=== PATIENT | male | born 1960 | race Caucasian/White ===

== ENCOUNTER → 2020-05-20 | Outpatient (CLI) | payer OTHER ==
[2020-05-20 18:35] LABS: BASOPHILS ABSOLUTE AUTO 0.04 K/mm3 (0.00-0.23); BASOPHILS PERCENT AUTO 1 % (0-2); EOSINOPHILS ABSOLUTE AUTO 0.24 K/mm3 (0.00-0.68); EOSINOPHILS PERCENT AUTO 3 % (0-6); Hematocrit 42.9 % (37.0-53.0); Hemoglobin 13.8 g/dL (13.5-17.5); IMMATURE GRAN ABSOLUTE AUTO 0.02 K/mm3 (0.00-0.10); IMMATURE GRAN PERCENT AUTO 0 % (0-1); LYMPHOCYTES ABSOLUTE AUTO 1.45 K/mm3 (0.84-5.20); LYMPHOCYTES PERCENT AUTO 20 % (21-46); MONOCYTES ABSOLUTE AUTO 0.82 K/mm3 (0.16-1.47); MONOCYTES PERCENT AUTO 11 % (4-13); Mean Corpuscular HGB 29.4 pg (26.0-34.0); Mean Corpuscular HGB Conc 32.2 g/dL (31.5-36.5); Mean Corpuscular Volume 92 fL (80-100); NEUTROPHILS ABSOLUTE AUTO 4.69 K/mm3 (1.96-9.15); NEUTROPHILS PERCENT AUTO 65 % (41-73); RDW Coefficient Variation 13.1 % (11.7-14.2); RDW Standard Deviation 44.4 fL (35.1-46.3); Red Blood Cell Count 4.69 M/mm3 (4.30-5.90); White Blood Cell Count 7.26 K/mm3 (4.00-11.30)
[2020-05-20 18:45] LABS: Mean Platelet Volume 10.9 fL (9.1-12.4); Platelet Count 264 K/mm3 (150-400)
[2020-05-20 19:17] LABS: Alanine Aminotransfer (ALT/SGP 15 U/L (12-78); Albumin, Blood 3.7 g/dL (3.4-5.0); Albumin/Globulin Ratio 0.8 (0.8-1.8); Alk Phos 76 U/L (50-136); Anion Gap 6 mmol/L (6-16); Aspartate Aminotrans (AST/SGOT 14 U/L (12-37); Bilirubin, Total 0.4 mg/dL (0.1-1.0); Blood Urea Nitrogen 22 mg/dL (8-24); Bun/Creatinine Ratio 17.9 (12.0-20.0); CO2, Blood 27 mmol/L (21-32); Calcium, Blood 10.1 mg/dL (8.5-10.1); Chloride, Blood 110 mmol/L (98-108); Creatinine, Blood 1.23 mg/dL (0.60-1.20); Globulin, Blood 4.8 g/dL (2.2-4.0); Glomerular Filtration Rate >60 (60-); Glucose, Blood 92 mg/dL (70-99); Sodium, Blood 143 mmol/L (136-145); Total Protein, Blood 8.5 g/dL (6.4-8.2)
== END | disposition home or self-care (01) ==
LOC: LAB SHORT 18:19 → LAB 18:19
PROVIDERS: Physician Assistant
DX: R10.9 Unspecified abdominal pain (principal)
CPT/HCPCS: 80053; 85025; 87086

== ENCOUNTER 2020-08-25 07:23 | Day surgery (SDC) | payer OTHER ==
[~2020-08-25] VITALS: Ht 180.3 cm; Wt 82.5 kg
[~2020-08-25 07:23] MED LIST: EUTHYROX50 MCG PO; TRAZ50 PO
[2020-08-25] MEDS ORDERED: ACYC200 (08:16)
[2020-08-25] MEDS ORDERED: Aspir 8181 MG PO (08:16)
== END 2020-08-25 10:08 | disposition home or self-care (01) ==
LOC: ORSCSDS 07:23
PROVIDERS: Surgery
PROC: 0DBL8ZX Excision of Transverse Colon, Via Natural or Artificial Opening Endoscopic, Diagnostic (ICD-10-PCS; principal; 2020-08-25 08:30)
PROC: 3E0H8GC Introduction of Other Therapeutic Substance into Lower GI, Via Natural or Artificial Opening Endoscopic (ICD-10-PCS; principal; 2020-08-25 08:30)
PROC: 0DB78ZX Excision of Stomach, Pylorus, Via Natural or Artificial Opening Endoscopic, Diagnostic (ICD-10-PCS; principal; 2020-08-25 08:30)
PROC: 0DB48ZX Excision of Esophagogastric Junction, Via Natural or Artificial Opening Endoscopic, Diagnostic (ICD-10-PCS; principal; 2020-08-25 08:30)
DX: R10.13 Epigastric pain (principal); C18.3 Malignant neoplasm of hepatic flexure; R19.4 Change in bowel habit; K22.70 Barrett's esophagus without dysplasia; K21.9 Gastro-esophageal reflux disease without esophagitis; E03.9 Hypothyroidism, unspecified; E78.5 Hyperlipidemia, unspecified; Z79.899 Other long term (current) drug therapy
CPT/HCPCS: 88305; 88312; 88342; J2704; J7120

== ENCOUNTER 2020-09-09 09:50 | Day surgery (SDC) | payer OTHER ==
[~2020-09-09] VITALS: Ht 180.3 cm; Wt 84.8 kg
[~2020-09-09 09:50] MED LIST changes: +ACYC200; +Aspir 8181 MG PO
--- NOTE | 2020-09-09 11:20 | NUR ---
09/09/20 1120 Shruthi Rivera NO PREOP ANTIBIOTICS ORDERED
--- NOTE | 2020-09-09 13:17 | NUR ---
Discharge instructions reviewed with patient. Patient verbalizes understanding. Copy given to patient to take home. Patient States Post-Procedure ride home has been arranged. Discharged via wheelchair to private car for ride home.
== END 2020-09-09 13:15 | disposition home or self-care (01) ==
LOC: ORSCMMR 09:50 → ORD 11:00 → ORSCMMR 11:00
PROVIDERS: Surgery
PROC: B543ZZA Ultrasonography of Right Jugular Veins, Guidance (ICD-10-PCS; principal; 2020-09-09 11:00)
PROC: 05HM33Z Insertion of Infusion Device into Right Internal Jugular Vein, Percutaneous Approach (ICD-10-PCS; principal; 2020-09-09 11:00)
DX: C64.9 Malignant neoplasm of unspecified kidney, except renal pelvis (principal); C18.3 Malignant neoplasm of hepatic flexure; E03.9 Hypothyroidism, unspecified; E78.5 Hyperlipidemia, unspecified; Z79.899 Other long term (current) drug therapy
CPT/HCPCS: 77001; C1788; J1100; J1642; J2250; J2370; J2405; J2704; J3010; J7120

== ENCOUNTER 2020-11-03 14:33 | Day surgery (SDC) | payer OTHER | END 2020-11-03 22:42 | disposition home or self-care (01) | LOC: RAD 14:33 | DX: C18.9 Malignant neoplasm of colon, unspecified (principal) ==

== ENCOUNTER 2021-03-02 21:20 | Inpatient (IN) | payer OTHER ==
[~2021-03-02] VITALS: Ht 180.3 cm; Wt 78.5 kg
[2021-03-02 21:53] LABS: Hematocrit 36.9 % (37.0-53.0); Hemoglobin 12.1 g/dL (13.5-17.5); Mean Corpuscular HGB 33.6 pg (26.0-34.0); Mean Corpuscular HGB Conc 32.8 g/dL (31.5-36.5); Mean Corpuscular Volume 103 fL (80-100); Mean Platelet Volume 10.6 fL (9.1-12.4); Platelet Count 233 K/mm3 (150-400); RDW Coefficient Variation 14.2 % (11.7-14.2); RDW Standard Deviation 53.3 fL (35.1-46.3)
[2021-03-02 22:10] LABS: BAND PERCENT MAN 11 % (0-8); BASOPHILS PERCENT MAN 0 % (0-2); EOSINOPHILS ABSOLUTE MAN 0.49 K/mm3 (0.00-0.68); EOSINOPHILS PERCENT MAN 3 % (0-6); LYMPHOCYTES ABSOLUTE MAN 1.16 K/mm3 (0.84-5.20); LYMPHOCYTES PERCENT MAN 7 % (21-46); MONOCYTES ABSOLUTE MAN 2.49 K/mm3 (0.16-1.47); MONOCYTES PERCENT MAN 15 % (4-13); NEUTROPHILS ABSOLUTE MAN 12.45 K/mm3 (1.96-9.15); SEG NEUTROPHILS PERCENT MAN 64 % (41-73); TOTAL CELLS COUNTED 100
[2021-03-02 22:13] LABS: Albumin, Blood 3.3 g/dL (3.4-5.0); Albumin/Globulin Ratio 0.7 (0.8-1.8); Bilirubin, Total 0.3 mg/dL (0.1-1.0); Bun/Creatinine Ratio 14.2 (12.0-20.0); Calcium, Blood 9.8 mg/dL (8.5-10.1); Creatinine, Blood 1.34 mg/dL (0.60-1.20); Potassium, Blood 3.9 mmol/L (3.5-5.5); Total Protein, Blood 8.3 g/dL (6.4-8.2)
[2021-03-02] MEDS ORDERED: ZOFRAN4 MG PO (22:35)
[2021-03-02] MEDS ORDERED: TAMSULOSIN HCL0.4 M1 PO (22:36)
[2021-03-03 05:36] LABS: Anion Gap 6 mmol/L (6-16); Blood Urea Nitrogen 17 mg/dL (8-24); Bun/Creatinine Ratio 16.3 (12.0-20.0); CHOL/HDL RATIO 3.2; CO2, Blood 23 mmol/L (21-32); Chloride, Blood 110 mmol/L (98-108); Cholesterol 150 mg/dL (50-200); Creatinine, Blood 1.04 mg/dL (0.60-1.20); Glomerular Filtration Rate >60 (60-); Glucose, Blood 97 mg/dL (70-99); HDL Cholesterol 47 mg/dL (>39); LDL/HDL RATIO 1.8; Low Density Lipoprotein Chol 85 mg/dL (0-110); Potassium, Blood 4.1 mmol/L (3.5-5.5); Sodium, Blood 139 mmol/L (136-145); Triglycerides 92 mg/dL (30-160); Very Low Density Lipoprot Chol 18 mg/dL (6-32)
--- NOTE | 2021-03-03 06:12 | NUR ---
FLANGING MACHINE OPERATOR SUMMARY PT NEW ADMIT ARRIVED TO UNIT AROUND 0130. PT IS SBA WITH IV LINE WITH SCD'S ON. TELE BEEN SINUS ASHLEE IN THE LOW 50'S WITH PVC'S PER LITHOGRAPH PRESS OPERATOR TINWARE. PT STATED ABD PAIN IS TOLERABLE AND NAUSEA IS ALSO TOLERABLE. SLEPT TONIGHT AFTER HEAD TO TOE ASSESSMENT. ROOM AIR MAINTAINING SATS AT 90% OR HIGHER. VSS. CALL LIGHT WITHIN REACH, BED ALARM ON. WILL CONTINUE TO MONITOR.
--- NOTE | 2021-03-03 18:44 | NUR ---
SHIFT ASSESSMENT: NO ACUTE EVENTS TO REPORT THIS SHIFT. PT A&O; CALM AND COOEPRATIVE WITH CARE. MEDICATED FOR ABD PAIN PER EMAR. TELE IN PLACE; SB @ 56 PER PLASMA PROCESSING CENTRIFUGE OPERATOR. NPO CONTINUING; CLINIMIX @ 100. WCTM.
--- NOTE | 2021-03-04 04:03 | NUR ---
RESTORATIVE COORDINATOR SUMMARY PT A/O X4. SBA TO INDEPENDENT TO THE BATHROOM. MEDICATED ONCE FOR NAUSEA AND PAIN THIS SHIFT. SLEPT WELL TONIGHT. ABLE TO MAKE NEEDS KNOWN. CONTINUING IV CLINIMEX. TELE Kelly ROSADO IN THE 50'S TO IN THE 60'S PER BOX TOE STITCHER. NO ACUTE CHANGES. CALL LIGHT WITHIN REACH, WILL CONTINUE TO MONITOR.
[2021-03-04 07:38] LABS: BASOPHILS ABSOLUTE AUTO 0.05 K/mm3 (0.00-0.23); BASOPHILS PERCENT AUTO 0 % (0-2); EOSINOPHILS ABSOLUTE AUTO 0.15 K/mm3 (0.00-0.68); EOSINOPHILS PERCENT AUTO 1 % (0-6); Hematocrit 33.1 % (37.0-53.0); Hemoglobin 10.7 g/dL (13.5-17.5); IMMATURE GRAN ABSOLUTE AUTO 0.12 K/mm3 (0.00-0.10); IMMATURE GRAN PERCENT AUTO 1 % (0-1); LYMPHOCYTES PERCENT AUTO 6 % (21-46); MONOCYTES ABSOLUTE AUTO 1.39 K/mm3 (0.16-1.47); MONOCYTES PERCENT AUTO 9 % (4-13); Mean Corpuscular HGB 33.8 pg (26.0-34.0); Mean Corpuscular HGB Conc 32.3 g/dL (31.5-36.5); Mean Corpuscular Volume 104 fL (80-100); Mean Platelet Volume 10.5 fL (9.1-12.4); NEUTROPHILS ABSOLUTE AUTO 12.89 K/mm3 (1.96-9.15); NEUTROPHILS PERCENT AUTO 83 % (41-73); Platelet Count 187 K/mm3 (150-400); RDW Coefficient Variation 14.2 % (11.7-14.2); RDW Standard Deviation 54.1 fL (35.1-46.3); Red Blood Cell Count 3.17 M/mm3 (4.30-5.90)
--- NOTE | 2021-03-04 19:27 | NUR ---
SHIFT SUMMARY: NO ACUTE EVENTS TO REPORT THIS SHIFT. PT A&O; INDEPENDENT IN ROOM. TELE IN PLACE; SR-SB IN 50-60s. HX COLON CA c METS; PT LAST RECEIVED CHEMO (DR RAVI) LAST WEEK. ABD CT 03/02; CONSTIPATION, HEPATIC MASS. BOWEL CARE GIVEN s RESULTS; PT STATES FEELING "FULL." DIET ADVANCED TO CLEAR LIQUIDS; PT TOLERATING. REPORT GIVEN TO ONCOMING RN.
--- NOTE | 2021-03-05 04:31 | NUR ---
SHIFT SUMMARY: PT IS ALERT AND ORIENTED. PT IS CALM AND COOPERATIVE WITH CARE. PT CALLS APPROPRIATELY. PT IS INDEPENDENT IN THE ROOM. PT REPORTS DIFFICULTY HAVING A BM, MEDICATING PER EMAR. PT DENIES PAIN, NAUSEA, VOMITING, AND SOB. PT SLEPT MUCH OF THE SHIFT WHEN NOT DISTURBED. NO ACUTE CHANGES OR COMPLICATIONS THIS SHIFT. BED IN LOW POSITION, CALL LIGHT WITHIN REACH. WILL REPORT TO DAY NURSE.
[2021-03-05 05:11] LABS: Anion Gap 6 mmol/L (6-16); Blood Urea Nitrogen 12 mg/dL (8-24); Bun/Creatinine Ratio 12.4 (12.0-20.0); CO2, Blood 23 mmol/L (21-32); Calcium, Blood 8.4 mg/dL (8.5-10.1); Chloride, Blood 110 mmol/L (98-108); Creatinine, Blood 0.96 mg/dL (0.60-1.20); Glomerular Filtration Rate >60 (60-); Glucose, Blood 99 mg/dL (70-99); Magnesium, Blood 2.1 mg/dL (1.6-2.4); Phosphorus, Blood 1.9 mg/dL (2.5-4.9); Sodium, Blood 139 mmol/L (136-145); Triglycerides 101 mg/dL (30-160)
--- NOTE | 2021-03-05 17:34 | NUR ---
SHIFT SUMMARY PT AOX4;' INDEPENDENT IN THE ROOM. PT C/O OF ABD DISCOMFORT AND CONSTIPATION. PT MEDICATED BOWEL CARE PER EMAR; PT ALSO RECEIVED A FLEET ENEMA AND HAS A RESULT OF HAVING A LOOSE BM. WAS CONCERN ABOUT THE PT AND UPDATED HER AND TALKED TO HER ON THE PHONE ABOUT THE PT CARE. DENIES PAIN OR SOB. BED IS IN THE LOWEST POSITION AND CALL LIGHT WITHIN REACH
--- NOTE | 2021-03-05 18:31 | NUR ---
OF THE PT CALLED AND ANGRY ABOUT THE PT MEAL AND VISITING HOURS AT THE HOSPITAL. THIS RN TOLD THE PT THAT THE PT ARE ABLE TO ORDER FROM THE MENU OR FOOD THAT WE HAVE HERE AT THE HOSPITAL PER PT DIET . EXPLAINED TO THE THAT THE DIET WAS ORDERED PER AND THE PT WAS TOLERATING THIS DIET SO FAR. WAS STILL NOT VERY HAPPY DUE TO THE FACT THAT THE PT WAS CONSTIPATED THIS MORNING AND SHE DOES NOT THINK THAT PASTA WAS APPROPRIATE. ALTHOUGH, DIFFERENT TYPES OF BOWEL CARE WAS ALREADY ORDERED AND GIVEN TO THIS PT; AND HE WAS ABLE TO HAVE A LOOSE BM AFTER THE ENEMA. PT DOES NOT HAVE ANY CONCERNS OR COMPLAINS.
[2021-03-06 05:30] LABS: Anion Gap 6 mmol/L (6-16); Blood Urea Nitrogen 11 mg/dL (8-24); CO2, Blood 23 mmol/L (21-32); Calcium, Blood 8.8 mg/dL (8.5-10.1); Chloride, Blood 108 mmol/L (98-108); Creatinine, Blood 0.92 mg/dL (0.60-1.20); Glomerular Filtration Rate >60 (60-); Glucose, Blood 118 mg/dL (70-99); Magnesium, Blood 2.1 mg/dL (1.6-2.4); Phosphorus, Blood 2.2 mg/dL (2.5-4.9); Potassium, Blood 3.9 mmol/L (3.5-5.5); Sodium, Blood 137 mmol/L (136-145)
--- NOTE | 2021-03-06 05:55 | NUR ---
SHIFT SUMMARY NO ACUTE CHANGES THIS SHIFT, CONTINUED C/O "FEELING GASSY", SIMETHICONE ADMIN, PT SLEPT T/O THE NIGHT NO OTHER C/O ANY KIND, PT SLEEPING AT THIS TIME, CALL LIGHT IN REACH, WILL CONT TO MONITOR UNTIL REPORT GIVEN TO DAY RN.
[2021-03-06] MEDS ORDERED: SIME80CH PO (13:15)
--- NOTE | 2021-03-06 15:09 | NUR ---
PT DISCHARGED WITH INSTRUCTIONS 1345, WC OUT TO [employer]. [facility].
--- NOTE | 2021-03-09 01:00 | NUR ---
REVIEWED PT'S INFORMATION FOR CURRENT ADMISSION
== END 2021-03-06 13:32 | disposition home or self-care (01) | DRG 439 ==
LOC: ER 21:20 → MEDS 03-03 00:02
PROVIDERS: Family Medicine; Physician Assistant; ADMIT Internal Medicine
DX: K85.30 Drug induced acute pancreatitis without necrosis or infection (principal); A09 Infectious gastroenteritis and colitis, unspecified; C18.9 Malignant neoplasm of colon, unspecified; T45.1X5A Adverse effect of antineoplastic and immunosuppressive drugs, initial encounter; D72.829 Elevated white blood cell count, unspecified; R54 Age-related physical debility; E89.0 Postprocedural hypothyroidism; R11.2 Nausea with vomiting, unspecified; K59.03 Drug induced constipation; T40.2X5A Adverse effect of other opioids, initial encounter; Y92.239 Unspecified place in hospital as the place of occurrence of the external cause; Z79.899 Other long term (current) drug therapy; Z79.82 Long term (current) use of aspirin; Z87.891 Personal history of nicotine dependence; Z85.528 Personal history of other malignant neoplasm of kidney; Z90.5 Acquired absence of kidney
CPT/HCPCS: 36415; 74177; 80048; 80053; 80061; 82947; 83605; 83690; 83735; 84100; 84478; 85025; 87040; 94762; 96365-59; 96375; 99285-25; A9270; J0692; J2270; J2405; J3411; J7030; Q9967

== ENCOUNTER 2021-03-08 18:18 | Inpatient (IN) | payer OTHER ==
[~2021-03-08] VITALS: Ht 180.3 cm; Wt 78.7 kg
[~2021-03-08 18:18] MED LIST changes: +SIME80CH PO; +TAMSULOSIN HCL0.4 M1 PO; +ZOFRAN4 MG PO
[2021-03-08 18:57] LABS: BASOPHILS ABSOLUTE AUTO 0.06 K/mm3 (0.00-0.23); BASOPHILS PERCENT AUTO 0 % (0-2); EOSINOPHILS ABSOLUTE AUTO 0.13 K/mm3 (0.00-0.68); EOSINOPHILS PERCENT AUTO 1 % (0-6); Hematocrit 36.8 % (37.0-53.0); Hemoglobin 11.9 g/dL (13.5-17.5); IMMATURE GRAN ABSOLUTE AUTO 0.13 K/mm3 (0.00-0.10); IMMATURE GRAN PERCENT AUTO 1 % (0-1); LYMPHOCYTES ABSOLUTE AUTO 1.19 K/mm3 (0.84-5.20); LYMPHOCYTES PERCENT AUTO 7 % (21-46); MONOCYTES ABSOLUTE AUTO 1.33 K/mm3 (0.16-1.47); MONOCYTES PERCENT AUTO 8 % (4-13); Mean Corpuscular HGB 32.5 pg (26.0-34.0); Mean Corpuscular HGB Conc 32.3 g/dL (31.5-36.5); Mean Corpuscular Volume 101 fL (80-100); Mean Platelet Volume 10.3 fL (9.1-12.4); NEUTROPHILS ABSOLUTE AUTO 13.37 K/mm3 (1.96-9.15); NEUTROPHILS PERCENT AUTO 83 % (41-73); Platelet Count 289 K/mm3 (150-400); RDW Coefficient Variation 13.9 % (11.7-14.2); RDW Standard Deviation 50.8 fL (35.1-46.3); Red Blood Cell Count 3.66 M/mm3 (4.30-5.90); White Blood Cell Count 16.21 K/mm3 (4.00-11.30)
[2021-03-08 19:32] LABS: Alanine Aminotransfer (ALT/SGP 11 U/L (12-78); Albumin, Blood 2.6 g/dL (3.4-5.0); Albumin/Globulin Ratio 0.5 (0.8-1.8); Alk Phos 134 U/L (50-136); Anion Gap 5 mmol/L (6-16); Aspartate Aminotrans (AST/SGOT 21 U/L (12-37); Bilirubin, Direct <0.1 mg/dL (0.0-0.3); Bilirubin, Total 0.3 mg/dL (0.1-1.0); Blood Urea Nitrogen 15 mg/dL (8-24); Bun/Creatinine Ratio 16.4 (12.0-20.0); CO2, Blood 26 mmol/L (21-32); Calcium, Blood 9.6 mg/dL (8.5-10.1); Chloride, Blood 107 mmol/L (98-108); Creatinine, Blood 0.92 mg/dL (0.60-1.20); Globulin, Blood 5.5 g/dL (2.2-4.0); Glomerular Filtration Rate >60 (60-); Glucose, Blood 111 mg/dL (70-99); Potassium, Blood 3.7 mmol/L (3.5-5.5); Sodium, Blood 138 mmol/L (136-145); Total Protein, Blood 8.1 g/dL (6.4-8.2)
[2021-03-08 19:36] LABS: Bilirubin, Indirect Unable to Calculate mg/dL (0.1-0.7)
[2021-03-08 21:04] LABS: Source, Urine Catheter
[2021-03-08 21:06] LABS: Appearance, Urine Cloudy (Clear); Bilirubin, Urine Neg (Neg); Blood, Urine 2+ (Neg); Color, Urine Yellow (P-Yellow); Glucose Qualitative, Urine Neg (Neg); Ketones, Urine 3+ (Neg); Leukocyte Esterase, Urine 1+ (Neg); Nitrite, Urine Neg (Neg); Protein, Urine 3+ (Neg); Specific Gravity, Urine 1.015 (1.003-1.022); Urobilinogen, Urine NORM (Normal)
[2021-03-08 21:18] LABS: Amorphous Heavy (0-Heavy); Bacteria Mod /hpf; Red Blood Cells, Urine 0-2 /hpf (0-2); Squamous Epithelial Cells Not Seen /hpf (Few)
[2021-03-08] MEDS ORDERED: SYNTHROID50 MCG PO (21:52)
[2021-03-08] MEDS ORDERED: TAMS.4ER PO (21:52)
[2021-03-08] MEDS ORDERED: TRAZ50 PO (21:52)
[2021-03-08] MEDS ORDERED: ACYCLOVIR400 MG PO (21:52)
[2021-03-09] MEDS ORDERED: Aspir 8181 MG PO (00:52)
[2021-03-09] MEDS ORDERED: SIME80CH PO (00:53)
[2021-03-09] MEDS ORDERED: ONDA4 PO (00:53)
[2021-03-09 05:07] LABS: BASOPHILS ABSOLUTE AUTO 0.07 K/mm3 (0.00-0.23); BASOPHILS PERCENT AUTO 1 % (0-2); EOSINOPHILS ABSOLUTE AUTO 0.11 K/mm3 (0.00-0.68); EOSINOPHILS PERCENT AUTO 1 % (0-6); Hematocrit 34.3 % (37.0-53.0); Hemoglobin 11.2 g/dL (13.5-17.5); IMMATURE GRAN ABSOLUTE AUTO 0.11 K/mm3 (0.00-0.10); IMMATURE GRAN PERCENT AUTO 1 % (0-1); LYMPHOCYTES ABSOLUTE AUTO 1.06 K/mm3 (0.84-5.20); LYMPHOCYTES PERCENT AUTO 7 % (21-46); MONOCYTES ABSOLUTE AUTO 1.32 K/mm3 (0.16-1.47); MONOCYTES PERCENT AUTO 9 % (4-13); Mean Corpuscular HGB 33.5 pg (26.0-34.0); Mean Corpuscular HGB Conc 32.7 g/dL (31.5-36.5); Mean Corpuscular Volume 103 fL (80-100); Mean Platelet Volume 10.6 fL (9.1-12.4); NEUTROPHILS ABSOLUTE AUTO 12.88 K/mm3 (1.96-9.15); NEUTROPHILS PERCENT AUTO 83 % (41-73); Platelet Count 261 K/mm3 (150-400); RDW Standard Deviation 52.2 fL (35.1-46.3); Red Blood Cell Count 3.34 M/mm3 (4.30-5.90); White Blood Cell Count 15.55 K/mm3 (4.00-11.30)
[2021-03-09 05:20] LABS: Anion Gap 4 mmol/L (6-16); Blood Urea Nitrogen 13 mg/dL (8-24); Bun/Creatinine Ratio 12.5 (12.0-20.0); CO2, Blood 28 mmol/L (21-32); Calcium, Blood 8.7 mg/dL (8.5-10.1); Chloride, Blood 108 mmol/L (98-108); Creatinine, Blood 1.04 mg/dL (0.60-1.20); Glomerular Filtration Rate >60 (60-); Glucose, Blood 120 mg/dL (70-99); Potassium, Blood 4.1 mmol/L (3.5-5.5); Sodium, Blood 140 mmol/L (136-145)
--- NOTE | 2021-03-09 06:39 | NUR ---
BEHAVIORAL PEDIATRICIAN SUMMARY PT NEW ADMIT, ARRIVED TO UNIT AROUND 0030. A/0X4. INTRODUCED TO STAFF AND ROOM. MEDICATED FOR ABD PAIN AND NAUSEA. PT IS ROOM AIR, DENIES SOB. MAINTAINING 02 SATS AT 92% AND ABOVE. PT IS BRADYCARDIC IN THE 50'S. PT WAS ADMITTED TO THIS HOSPITAL ABOUT A WEEK AGO WHICH HE WAS ALSO UNDER THIS RN'S CARE- PT TENDS TO RUN BRADYCARDIC AT BASELINE. DENIES CHEST PAIN AND DIZZINESS. VSS. SLEPT WELL TONIGHT. INDEPENDENT IN THE ROOM. SKIN APPEARS C.D.I CALL LIGHT WITHIN REACH, WILL GIVE REPORT TO ONCOMING RN.
--- NOTE | 2021-03-09 17:02 | NUR ---
PATIENT IS A/O X4. HE STATES HIS PAIN LEVEL IS AROUND A 5/10 ON AND OFF AND IS BEING TREATED PER EMAR. STATES HE FEELS BLOATED AND WILL BE ASSESSED FURTHER. HE WAS ABLE TO EAT SOME SOUP AND DRINK SOME APPLE JUICE FOR LUNCH WITH NO ISSUES OF NAUSEA OR VOMITING. CALL LIGHT IS IN REACH AND BED AT LOWEST POSITION. PATIENT CALLS APPROPRIATELY.
--- NOTE | 2021-03-09 17:53 | NUR ---
PLEASE REFER TO STUDENT NOTE FOR SHIFT SUMMARY.
--- NOTE | 2021-03-09 20:55 | NUR ---
ASSUMED CARE. AOX3, INDEPENDENT IN THE ROOM. REPORTS FEELING LIKE HE WILL VOMIT SOON. STATES HE STILL VOMITS ON ZOFRAN. ABDOMIN SOFT BUT DISTENDED, TENDER TO PALPITATIONS. LUNG SOUNDS CLEAR, RESP EVEN AND UNLABORED. ADMINISTERED PHENERGAN 12.5MG. WHICH APPEARS TO HAVE RESOLVED THE NAUSEA. HELD TRAZADONE AT THIS TIME DUE TO SEDATION. NEW CLINIMAX HUNG. WILL CONTINUE TO MONITOR. PAIN 11/27. CALL LIGHT IN REACH.
--- NOTE | 2021-03-09 21:29 | NUR ---
KAMRYN HAS BEEN UP TO THE BATHROOM A COUPLE OF TIMES NOW. NO TROUBLE WALKING WITH PHENERGAN ON BOARD. FALLS RIGHT BACK TO SLEEP WHEN BACK TO BED. WILL CONTINUE TO MONITOR.
--- NOTE | 2021-03-09 23:01 | NUR ---
MEDICATED FOR ABDOMINAL PAIN OF 03/29. NAUSEA IS STILL DOING WELL. HAS BEEN UP TO THE BATHROOM SEVERAL TIMES. DENIED WANTING THE TRAZADONE. CALL LIGHT IN REACH.
--- NOTE | 2021-03-10 | NUR ---
PAIN MANAGED, NO NAUSEA. IVF INFUSING WELL AT 250ML/HR. CLINIMAX STILL INFUSING. KAMRYN DENIES ANY NEEDS. INDEPENDENT IN THE ROOM. CALL LIGHT IN REACH. WILL CONTINUE TO MONITOR.
--- NOTE | 2021-03-10 02:00 | NUR ---
PATIENT SLEEPING WELL, NO SIGNS OF DISTRESS. CALL LIGHT IN REACH.
--- NOTE | 2021-03-10 04:27 | NUR ---
LAB IN ROOM, IV BEEPING. ADDED MORE TIME ON FLUIDS. HE DID GET UP AND WENT FOR A SHORT WALK, ABDOMIN BLOATED. GAVE SIMETHOCONE AND MORPHINE WHEN HE GOT BACK TO THE ROOM. WILL CONTINUE TO MONITOR.
[2021-03-10 05:21] LABS: Triglycerides 108 mg/dL (30-160)
--- NOTE | 2021-03-10 06:52 | NUR ---
SHIFT SUMMARY: AOX3, INDEPENDENT IN THE ROOM. VS WNL, AFEBRILE. FULL LIQUID DIET AND TOLERATED SOME OK LAST NIGHT. DID HAVE NAUSEA X1, GAVE 12.5MG OF PHENERGAN THIS RESOLVED IT FOR THE REST OF THE NIGHT. ABDOMINAL PAIN GAVE PAIN MEDICATION X2. IV CLINIMAX INFUSING ALL NIGHT WITH IV FLUIDS. ABLE TO GET UP TO BATHROOM PRN. SATS REMAINED ABOVE 90%. TENDERNESS AND HYPOACTIVE BT. SLEPT MOST OF SHIFT. NO OTHER CHANGES TO REPORT, CALL LIGHT IS IN REACH.
--- NOTE | 2021-03-10 16:54 | NUR ---
SHIFT SUMMARY- PT IS A/O, PLESANT AND COOPERATVIE. HIS APPETITE IS POOR. HIS WAS AT BEDSIDE THIS AFTERNOON. HE WENT FOR A CT THIS MORNING. HE IS RECIEVING IV NUTRITION. HE IS AMBULATING TO THE RESTROOM. HE IS RECIEVING PRN PAIN AND NAUSEA MEDICATION. HIS BED IS IN THE LOW POSITION AND CALL LIGHT IS WITHIN REACH.
--- NOTE | 2021-03-10 21:15 | NUR ---
ASSUMED CARE. AOX3. STATES HE DID BETTER TODAY. FEELS HE ATE A LITTLE MORE WITH LESS NAUSEA. NO VOMITING TODAY. BUT DOES FEEL HE GETS MORE BLOATED WHICH CAUSES MORE PAIN. DISCUSSED TRYING TO EAT SMALLER PORTIONS MORE OFTEN TO GET HIS STOMACH BACK USE TO HAVING FOOD TO DECREASE THE GAS BUILD-UP. HE SAID HE WOULD TRY. ABDOMIN DISTENDED ROUND, TENDER TO PALPITATIONS. HYPOACTIVE BT. PAIN 8/10. WHILE PERPARING HIS MEDS, HE WALKED THE HUERTA FOR A FEW MINUTES TO SEE IF IT WOULD HELP WITH GAS MOVEMENT. CAME BACK TO THE ROOM AND SAID HE FELT IT MADE IT WORSE. MEDICATED WITH MORPHINE AND SIMETHOCONE. IVF INFUSING WELL. HEATING PAD SET UP FOR PAIN MANAGMENT. NO OTHER NEEDS TO NOTE. CALL LIGHT IN REACH.
--- NOTE | 2021-03-10 22:02 | NUR ---
KAMRYN IS DOING BETTER, HEATING PAD ON ABDOMIN, WHICH HELPS WITH GAS PAIN. PAIN IS RELEIVED SOME. NO NAUSEA. WATCHING TV. CALL LIGHT IN REACH. WILL CONTINUE TO MONITOR.
--- NOTE | 2021-03-11 00:15 | NUR ---
MEDICATED FOR PAIN 12/27. HEATING PAD ON. DENIES ANY OTHER NEEDS OR CONCERNS. CALL LIGHT IN REACH.
--- NOTE | 2021-03-11 05:45 | NUR ---
SHIFT SUMMARY: AOX3, INDEPENDENT IN THE ROOM. DOING ALOT BETTER. NO NAUSEA JUST SOME GAS AND BLOATING TONIGHT. THIS RESOLVED WITH A HEATING PAD, SIMITHOCONE AND SOME PAIN MEDICATION. HE GOT PAIN MEDICATION 1 OTHER TIME TONIGHT. WALKED IN THE HALLS X1. ABLE TO TOLERATE A LITTLE MORE FULL LIQUID DIET. SLEPT OFF AND ON. IVF INFUSING AT 100ML/HR. NO OTHER CHANGES TO NOTE THIS SHIFT.
[2021-03-11 11:57] LABS: Anion Gap 6 mmol/L (6-16); Blood Urea Nitrogen 12 mg/dL (8-24); Bun/Creatinine Ratio 12.7 (12.0-20.0); CO2, Blood 27 mmol/L (21-32); Calcium, Blood 8.9 mg/dL (8.5-10.1); Chloride, Blood 107 mmol/L (98-108); Creatinine, Blood 0.95 mg/dL (0.60-1.20); Glomerular Filtration Rate >60 (60-); Glucose, Blood 91 mg/dL (70-99); Potassium, Blood 3.9 mmol/L (3.5-5.5); Sodium, Blood 140 mmol/L (136-145)
--- NOTE | 2021-03-11 19:48 | NUR ---
a+o call light in reach, pain controlled with prescribed medication, no s/sx of infection at iv site, rm , bsr shared with noc nurse and pt who stated he was starting to feel bloated but was hoping it would pass, noc nurse validated pt and promised to provide bowel care
--- NOTE | 2021-03-12 05:27 | NUR ---
SUMMARY PT HAD NO NEW COMPLAINTS. PT PAIN AND DISCOMFORT TX WELL ORDERED PER EMAR. PT HAS SLEPT WELL T/O SHIFT. PT CURRENTLY SLEEPING IN NO DISTRESS. CALL LIGHT IN REACH.
--- NOTE | 2021-03-12 18:19 | NUR ---
SHIFT SUMMARY PT AAOX4, ABLE TO MAKE NEEDS KNOWN, PLEASANT AND COOPERATIVE TO CARE. MEDICATED FOR ABDOMINAL PAIN PER EMAR. NO C/O CP, SOB, OR N&V THIS SHIFT. PT INDEPENDENT IN THE ROOM, CALLS APPROPRIATELY FOR ASSISTANCE. PT TOLERATING FULL LIQUID DIET WELL. BED AT LOWEST POSITION. CALL LIGHT WITHIN REACH.
--- NOTE | 2021-03-12 19:15 | NUR ---
ASSUMED CARE RECEIVED REPORT FROM CONNIE PHILLIPS. PT RESTING, IN NAD. PT SALINE LOCKED, UP TO AMBULATE IN HALLWAYS. NO OTHER ACUTE NEEDS ASSESSED AT THIS TIME. CALL LIGHT, POSSESSIONS IN REACH.
[2021-03-13 04:42] LABS: BASOPHILS ABSOLUTE AUTO 0.05 K/mm3 (0.00-0.23); BASOPHILS PERCENT AUTO 1 % (0-2); EOSINOPHILS ABSOLUTE AUTO 0.18 K/mm3 (0.00-0.68); EOSINOPHILS PERCENT AUTO 2 % (0-6); Hematocrit 32.5 % (37.0-53.0); Hemoglobin 10.5 g/dL (13.5-17.5); IMMATURE GRAN ABSOLUTE AUTO 0.06 K/mm3 (0.00-0.10); IMMATURE GRAN PERCENT AUTO 1 % (0-1); LYMPHOCYTES ABSOLUTE AUTO 0.89 K/mm3 (0.84-5.20); LYMPHOCYTES PERCENT AUTO 9 % (21-46); MONOCYTES ABSOLUTE AUTO 1.05 K/mm3 (0.16-1.47); MONOCYTES PERCENT AUTO 11 % (4-13); Mean Corpuscular HGB 33.2 pg (26.0-34.0); Mean Corpuscular HGB Conc 32.3 g/dL (31.5-36.5); Mean Corpuscular Volume 103 fL (80-100); Mean Platelet Volume 10.2 fL (9.1-12.4); NEUTROPHILS ABSOLUTE AUTO 7.43 K/mm3 (1.96-9.15); NEUTROPHILS PERCENT AUTO 77 % (41-73); Platelet Count 298 K/mm3 (150-400); RDW Standard Deviation 52.2 fL (35.1-46.3); Red Blood Cell Count 3.16 M/mm3 (4.30-5.90); White Blood Cell Count 9.66 K/mm3 (4.00-11.30)
[2021-03-13 05:05] LABS: Alanine Aminotransfer (ALT/SGP 41 U/L (12-78); Albumin, Blood 2.1 g/dL (3.4-5.0); Albumin/Globulin Ratio 0.5 (0.8-1.8); Alk Phos 445 U/L (50-136); Anion Gap 3 mmol/L (6-16); Aspartate Aminotrans (AST/SGOT 81 U/L (12-37); Bilirubin, Total 0.7 mg/dL (0.1-1.0); Blood Urea Nitrogen 8 mg/dL (8-24); Bun/Creatinine Ratio 8.5 (12.0-20.0); CO2, Blood 29 mmol/L (21-32); Calcium, Blood 8.8 mg/dL (8.5-10.1); Chloride, Blood 108 mmol/L (98-108); Creatinine, Blood 0.94 mg/dL (0.60-1.20); Globulin, Blood 4.6 g/dL (2.2-4.0); Glomerular Filtration Rate >60 (60-); Glucose, Blood 94 mg/dL (70-99); Potassium, Blood 3.9 mmol/L (3.5-5.5); Sodium, Blood 140 mmol/L (136-145); Total Protein, Blood 6.7 g/dL (6.4-8.2)
--- NOTE | 2021-03-13 07:08 | NUR ---
HTML WEB DEVELOPER SUMMARY PT RESTING, IN NAD. APPEARED TO SLEEP WELL T/O NIGHT. VS REVIEWED, WNL. NO ACUTE CONCERNS TO REPORT OVERNIGHT. PAIN MANAGED WITH MEDS PER EMAR, WITH GOOD EFFECT. NO ACUTE NEEDS ASSESSED AT THIS TIME. CALL LIGHT, POSSESSIONS IN REACH, BED IN LOW AND LOCKED POSITION. IVF INFUSING ORDERED. REPORT GIVEN TO CONNIE PHILLIPS.
--- NOTE | 2021-03-13 09:03 | NUR ---
Supportive visit this AM. Pt resting in bed and reports mild pain at this time. He reports current regimen is managing his pain. Pt reports still struggling with PO intake but is getting a little better each day. Reviewed plan of care and engaged in therapeutic listening. Pt reports receiving 10 of 12 treatments for his cancer. He reports experiencing side effects around day 3 through 5 then starts feeling better. Pt reports being . He reports having children that live out of town. Pt reports spouuse, his brother, and his parents are supportive. Ended visit to allow Pt to rest. Palliative Care will remain available.
--- NOTE | 2021-03-13 18:23 | NUR ---
SHIFT SUMMARY PT AAOX4, ABLE TO MAKE NEEDS KNOWN, PLEASANT AND COOPERATIVE TO CARE. PT MEDICATED FOR PAIN AND NAUSEA PER EMAR. NO C/O CP OR SOB. PT INDEPENDENT IN THE ROOM. NO ACUTE CHANGES NOTED TO PT THIS SHIFT. BED AT LOWEST POSITION. CALL LIGHT WITHIN REACH.
[2021-03-14 05:13] LABS: Anion Gap 5 mmol/L (6-16); Blood Urea Nitrogen 8 mg/dL (8-24); Bun/Creatinine Ratio 7.8 (12.0-20.0); CO2, Blood 26 mmol/L (21-32); Calcium, Blood 8.7 mg/dL (8.5-10.1); Chloride, Blood 108 mmol/L (98-108); Creatinine, Blood 1.03 mg/dL (0.60-1.20); Glomerular Filtration Rate >60 (60-); Glucose, Blood 89 mg/dL (70-99); Potassium, Blood 3.8 mmol/L (3.5-5.5); Sodium, Blood 139 mmol/L (136-145)
--- NOTE | 2021-03-14 06:29 | NUR ---
0600 PT WOKE WITH A BLOODY NOSE AND FEVER. BLEEDING CONTROLLED AND PT GIVEN TYLENOL. TM.
[2021-03-14] MEDS ORDERED: FAMO20 PO (16:04)
[2021-03-14] MEDS ORDERED: TRAM50 PO (16:05)
[2021-03-14] MEDS ORDERED: Hair, Skin & N1 EACH PO (16:05)
--- NOTE | 2021-03-14 16:51 | NUR ---
DISCHARGE SUMMARY PT DISCHARGE TO HOME THIS SHIFT AT 1630. PT AAOX4 ABLE TO MAKE NEEDS KNOWN, PLEASANT AND COOPERATIVE TO CARE. PT's AT BEDSIDE DURING DISCHARGE PROCESS. PT AND SPOUSE VERBALIZED UNDERSTANDING OF DISCHARGE ORDERS AND TEACHINGS. NO C/O PAIN OR ANY DISCOMFORT NOTED TO PATIENT, NO CONCERNS OR ISSUES NOTED FROM PATIENT OR FAMILY. IV LINE DISCONTINUED PRIOR TO DISCHARGE. DISCHARGE PACKET GIVEN TO PATIENT UPON D/C.
== END 2021-03-14 17:05 | disposition home or self-care (01) | DRG 439 ==
LOC: ER 18:18 → MEDS 22:53 → ENPENDDIS 03-14 15:18 → MEDS 03-14 17:05
PROVIDERS: Family Medicine; Physician Assistant; Student in an Organized Health Care Education/Training Program; ADMIT Internal Medicine
DX: K85.90 Acute pancreatitis without necrosis or infection, unspecified (principal); C78.7 Secondary malignant neoplasm of liver and intrahepatic bile duct; C77.2 Secondary and unspecified malignant neoplasm of intra-abdominal lymph nodes; C18.9 Malignant neoplasm of colon, unspecified; K52.1 Toxic gastroenteritis and colitis; K59.00 Constipation, unspecified; Z90.5 Acquired absence of kidney; Z98.890 Other specified postprocedural states; Z87.891 Personal history of nicotine dependence; Z79.899 Other long term (current) drug therapy; T45.1X5A Adverse effect of antineoplastic and immunosuppressive drugs, initial encounter; T47.4X5A Adverse effect of other laxatives, initial encounter; D64.9 Anemia, unspecified; F55.2 Abuse of laxatives
CPT/HCPCS: 36415; 74177; 76705; 80048; 80053; 80076; 81001; 82607; 82746; 83690; 84100; 84478; 85025; 87086; 93005; 93010; 94762; 96374; 96375; 97165; 99285-25; A9270; J2270; J2405; J2550; J2765; J7030; J7042; J7120; Q9967

== ENCOUNTER 2021-03-26 14:37 | Inpatient (IN) | payer OTHER ==
[~2021-03-26] VITALS: Ht 180.3 cm; Wt 73.5 kg
[~2021-03-26 14:37] MED LIST changes: +ACYCLOVIR400 MG PO; +FAMO20 PO; +Hair, Skin & N1 EACH PO; +ONDA4 PO; +SYNTHROID50 MCG PO; +TAMS.4ER PO; +TRAM50 PO
[2021-03-26 16:02] LABS: BASOPHILS ABSOLUTE AUTO 0.04 K/mm3 (0.00-0.23); BASOPHILS PERCENT AUTO 0 % (0-2); EOSINOPHILS ABSOLUTE AUTO 0.11 K/mm3 (0.00-0.68); EOSINOPHILS PERCENT AUTO 1 % (0-6); Hemoglobin 11.6 g/dL (13.5-17.5); IMMATURE GRAN ABSOLUTE AUTO 0.03 K/mm3 (0.00-0.10); IMMATURE GRAN PERCENT AUTO 0 % (0-1); LYMPHOCYTES ABSOLUTE AUTO 0.49 K/mm3 (0.84-5.20); LYMPHOCYTES PERCENT AUTO 5 % (21-46); MONOCYTES ABSOLUTE AUTO 1.04 K/mm3 (0.16-1.47); MONOCYTES PERCENT AUTO 12 % (4-13); Mean Corpuscular HGB 32.2 pg (26.0-34.0); Mean Corpuscular HGB Conc 33.1 g/dL (31.5-36.5); Mean Corpuscular Volume 97 fL (80-100); Mean Platelet Volume 10.5 fL (9.1-12.4); NEUTROPHILS ABSOLUTE AUTO 7.29 K/mm3 (1.96-9.15); NEUTROPHILS PERCENT AUTO 81 % (41-73); Platelet Count 349 K/mm3 (150-400); RDW Standard Deviation 57.1 fL (35.1-46.3)
[2021-03-26 16:18] LABS: Alanine Aminotransfer (ALT/SGP 148 U/L (12-78); Albumin, Blood 2.3 g/dL (3.4-5.0); Albumin/Globulin Ratio 0.4 (0.8-1.8); Alk Phos 696 U/L (50-136); Anion Gap 4 mmol/L (6-16); Aspartate Aminotrans (AST/SGOT 242 U/L (12-37); Bilirubin, Total 7.6 mg/dL (0.1-1.0); Blood Urea Nitrogen 14 mg/dL (8-24); Bun/Creatinine Ratio 13.9 (12.0-20.0); CO2, Blood 28 mmol/L (21-32); Calcium, Blood 9.5 mg/dL (8.5-10.1); Chloride, Blood 103 mmol/L (98-108); Creatinine, Blood 1.01 mg/dL (0.60-1.20); Globulin, Blood 5.7 g/dL (2.2-4.0); Glomerular Filtration Rate >60 (60-); Glucose, Blood 130 mg/dL (70-99); Potassium, Blood 3.6 mmol/L (3.5-5.5); Sodium, Blood 135 mmol/L (136-145)
[2021-03-26] MEDS ORDERED: OXYCONTIN10 MG PO (17:47)
[2021-03-26] MEDS ORDERED: METO5A (17:48)
[2021-03-26 19:27] LABS: Source, Urine Clean Catch
[2021-03-26 19:37] LABS: Appearance, Urine Clear (Clear); Blood, Urine 1+ (Neg); Color, Urine Amber (P-Yellow); Glucose Qualitative, Urine 1+ (Neg); Ketones, Urine Neg (Neg); Leukocyte Esterase, Urine 2+ (Neg); Nitrite, Urine Pos (Neg); Protein, Urine 2+ (Neg); Specific Gravity, Urine 1.015 (1.003-1.022); Urobilinogen, Urine 2+ (Normal)
[2021-03-26 19:45] LABS: Bilirubin, Urine 3+ (Neg)
[2021-03-26 19:50] LABS: Bacteria Mod /hpf; Red Blood Cells, Urine 0-2 /hpf (0-2); Squamous Epithelial Cells Few /hpf (Few)
[2021-03-27 05:55] LABS: BASOPHILS ABSOLUTE AUTO 0.06 K/mm3 (0.00-0.23); BASOPHILS PERCENT AUTO 1 % (0-2); EOSINOPHILS ABSOLUTE AUTO 0.17 K/mm3 (0.00-0.68); EOSINOPHILS PERCENT AUTO 2 % (0-6); Hematocrit 32.5 % (37.0-53.0); Hemoglobin 10.5 g/dL (13.5-17.5); IMMATURE GRAN ABSOLUTE AUTO 0.03 K/mm3 (0.00-0.10); IMMATURE GRAN PERCENT AUTO 0 % (0-1); LYMPHOCYTES ABSOLUTE AUTO 0.62 K/mm3 (0.84-5.20); LYMPHOCYTES PERCENT AUTO 8 % (21-46); MONOCYTES ABSOLUTE AUTO 1.26 K/mm3 (0.16-1.47); MONOCYTES PERCENT AUTO 16 % (4-13); Mean Corpuscular HGB 32.3 pg (26.0-34.0); Mean Corpuscular HGB Conc 32.3 g/dL (31.5-36.5); Mean Corpuscular Volume 100 fL (80-100); Mean Platelet Volume 11.2 fL (9.1-12.4); NEUTROPHILS ABSOLUTE AUTO 5.96 K/mm3 (1.96-9.15); NEUTROPHILS PERCENT AUTO 74 % (41-73); Platelet Count 290 K/mm3 (150-400); RDW Coefficient Variation 16.4 % (11.7-14.2); RDW Standard Deviation 60.2 fL (35.1-46.3); Red Blood Cell Count 3.25 M/mm3 (4.30-5.90)
[2021-03-27 06:23] LABS: Alanine Aminotransfer (ALT/SGP 127 U/L (12-78); Albumin, Blood 2.5 g/dL (3.4-5.0); Albumin/Globulin Ratio 0.5 (0.8-1.8); Alk Phos 608 U/L (50-136); Anion Gap 5 mmol/L (6-16); Aspartate Aminotrans (AST/SGOT 222 U/L (12-37); Bilirubin, Total 7.6 mg/dL (0.1-1.0); Blood Urea Nitrogen 13 mg/dL (8-24); Bun/Creatinine Ratio 15.6 (12.0-20.0); CO2, Blood 25 mmol/L (21-32); Chloride, Blood 105 mmol/L (98-108); Creatinine, Blood 0.83 mg/dL (0.60-1.20); Globulin, Blood 4.9 g/dL (2.2-4.0); Glomerular Filtration Rate >60 (60-); Glucose, Blood 107 mg/dL (70-99); Potassium, Blood 3.6 mmol/L (3.5-5.5); Sodium, Blood 135 mmol/L (136-145); Total Protein, Blood 7.4 g/dL (6.4-8.2)
[2021-03-27] MEDS ORDERED: CONSTULOSE10 GM/155 PO (15:34)
[2021-03-27] MEDS ORDERED: Oxycodone HCl20 M1 PO (15:36)
[2021-03-27] MEDS ORDERED: REGLAN10 M7 PO (15:42)
[2021-03-27] MEDS ORDERED: OXYC10TA19 PO (15:52)
--- NOTE | 2021-03-27 17:35 | NUR ---
SHIFT SUMMARY PT ADMITTED TO UNIT FROM ED THIS SHIFT AT 1445. RECEIVED REPORT FROM CONNIE PURDY. PT AAOX4, ABLE TO MAKE NEEDS KNOWN, PLEASANT AND COOPERATIVE TO CARE. PT MEDICATED FOR ABDOMINAL PAIN PER EMAR. PT ALSO MEDICATED FOR NAUSEA. NO C/O CP OR SOB. NASOGASTRIC TUBE IN PLACE. PT SBA TO BATHROOM. BED AT LOWEST POSITION. CALL LIGHT WITHIN REACH.
--- NOTE | 2021-03-28 01:08 | NUR ---
PT with metastatic colon cancer & pancreatits had NJ tube placed 5 days prior to admit at [place]. PT was recieving NJ tube feeding of isosource HN at home via administeration. NO BM for 13 days now, unable to tolearte oral for longer than that. PT is full code & he verified that. Bilirubin 7.6 PT very jaundiced. N & V despite antiemetic use. Has oral senna & colace, NPO not given due to N & V & NPO statrus. Dietary consult for tube feedings was recieving isosource HN via NJ tube with administering. Abd pain 8/10 mild relief with 4 mg IV morphine q @ HRS PRN. PT in IVF infusing at 150 ml hr. NJ tube clamped. DR Scott Miranda oncology per PT.
[2021-03-28 04:55] LABS: BASOPHILS ABSOLUTE AUTO 0.04 K/mm3 (0.00-0.23); BASOPHILS PERCENT AUTO 0 % (0-2); EOSINOPHILS ABSOLUTE AUTO 0.05 K/mm3 (0.00-0.68); EOSINOPHILS PERCENT AUTO 1 % (0-6); Hematocrit 33.3 % (37.0-53.0); IMMATURE GRAN ABSOLUTE AUTO 0.02 K/mm3 (0.00-0.10); IMMATURE GRAN PERCENT AUTO 0 % (0-1); LYMPHOCYTES ABSOLUTE AUTO 0.44 K/mm3 (0.84-5.20); LYMPHOCYTES PERCENT AUTO 5 % (21-46); MONOCYTES ABSOLUTE AUTO 1.05 K/mm3 (0.16-1.47); MONOCYTES PERCENT AUTO 11 % (4-13); Mean Corpuscular HGB 32.2 pg (26.0-34.0); Mean Corpuscular Volume 97 fL (80-100); Mean Platelet Volume 10.3 fL (9.1-12.4); NEUTROPHILS ABSOLUTE AUTO 7.92 K/mm3 (1.96-9.15); NEUTROPHILS PERCENT AUTO 83 % (41-73); Platelet Count 309 K/mm3 (150-400); RDW Coefficient Variation 16.7 % (11.7-14.2); RDW Standard Deviation 59.4 fL (35.1-46.3); Red Blood Cell Count 3.42 M/mm3 (4.30-5.90); White Blood Cell Count 9.52 K/mm3 (4.00-11.30)
[2021-03-28 05:22] LABS: Alanine Aminotransfer (ALT/SGP 116 U/L (12-78); Albumin, Blood 2.2 g/dL (3.4-5.0); Albumin/Globulin Ratio 0.5 (0.8-1.8); Alk Phos 598 U/L (50-136); Anion Gap 6 mmol/L (6-16); Aspartate Aminotrans (AST/SGOT 175 U/L (12-37); Bilirubin, Total 8.4 mg/dL (0.1-1.0); Blood Urea Nitrogen 11 mg/dL (8-24); Bun/Creatinine Ratio 13.3 (12.0-20.0); CO2, Blood 24 mmol/L (21-32); Calcium, Blood 8.5 mg/dL (8.5-10.1); Chloride, Blood 107 mmol/L (98-108); Creatinine, Blood 0.82 mg/dL (0.60-1.20); Globulin, Blood 4.5 g/dL (2.2-4.0); Glomerular Filtration Rate >60 (60-); Glucose, Blood 114 mg/dL (70-99); Potassium, Blood 3.7 mmol/L (3.5-5.5); Sodium, Blood 137 mmol/L (136-145); Total Protein, Blood 6.7 g/dL (6.4-8.2)
--- NOTE | 2021-03-28 06:28 | NUR ---
60 yEAR OLD maLE WITH METASTATIC COLON CANCER WAS ADMITTED WITH ACUTE PANCREATITS & ELEVATED BILIRUBEN TO 8.4 THIS AM, LIVER FUNCTION TESTS CONTINUE ELEVATED. ACUTE ABD PAIN CONTINUES WITH MORPHINE 4 MG iv SEVERAL TIMES WELL IV ZOFRAN. Called MD Camargo about PTS home meds & lack of bowel movemet x 2 weeks, no new orders to address. Reviewed PTs home med list & tube feed formula & dietary referral med to assess tube feed needs. has NG tube places at [place] recently & has been unable to tolerate tube feed or oral meds. See's DR Kelly Miranda at cancer treatment center for metastatic cancer. po meds held due to nausea & vomiting.
--- NOTE | 2021-03-28 18:07 | NUR ---
SHIFT SUMMARY PT AOX4; INDEPENDENT IN THE ROOM AND AT BEDSIDE. MEDICATED PER EMAR; PAIN STILL STAYS ABOUT 7/10 ON ABD. PT STATED FEELS LIKE THE HIS PAIN IS GETTING WORSE. MEDICATED FOR NAUSEA WELL. PT GIVEN SUP DULCOLAX TODAY; NO BM FOR 2 WEEKS; HE STATED HE HAD A SMALL BM TODAY. BED IS IN THE LOWEST POSITION AND CALL LIGHT WITHIN REACH
--- NOTE | 2021-03-28 20:24 | NUR ---
[facility] Care initial contact - Summary of multiple visits and case conferences t/o this afternoon and gris. Dietitian contacted me with request for visit today per Dr Sow's request. After speaking with Dr Lr, covering for Dr Sow, I visited pt and his , pt's RN and requested provider consult for Dr Miranda and passed on pt/'s questions re: pain control, nutrition and prognosis. I spent approx an hour with pt and educating on advanced directives and options on that form. We also discussed pt's wishes for ongoing care and treatment options available to him. Celine and Todd had been trying to work on documenting their wishes and personal affairs recently. Celine had an AD Form she had printed from the internet with her today. Pt is in obvious discomfort, feeling anxious and restless, frequently moving legs and trying to get more comfortable. He appears jaundiced, thin and frail. He has an NJ tube with no current feedings ordered until after testing and results discussed from earlier today. appears exhausted and demonstrating severe cg distress. Attempted to support both as much as possible. They had spoken to oncologist recently and understood a modified prognosis of 1-2 years from him. They are awaiting a cancer treatment pill to be delivered tomorrow. I spoke with again in the caro as she was leaving and before she left she received a message from Todd that was in his room to meet with them. I returned to the room with Celine. Dr Sow reviewed findings of testing done today and her conversation with Dr Miranda this evening. Plan of care outlined and goals were outlined by Dr. Questions of nutrition, pain control and prognosis was adressed by . Celine was appropriately tearful and asked verg good questions. Both pt and were allowed time to express feelings and ask any questions they had. Again, support offered to both and encouragement for Celine to rest at home tonight and take care of herself also. I believe pt and recognize severity of pt's current progression of cancer and challenges of getting adequate nutrition. They expressed they want to try any available treatment that the Drs feel may be helpful for quality of life, symptom management and prolongation of life at this time. Celine states that she talks to her children regularly to keep them updated and asked if they should come. They all live out of area. I recommended that if possible, any time they had available to come and spend with their parents at this time would be encouraged, with the possibility of even more time later if Todd' new treatment to be started this week is helpful and able to improve his s/s. Celine shared that Todd expressed to her after our first meeting this afternoon that if his s/s could not be improved, that he would not want to prolong his life and suffering. Plan for daily visits.
--- NOTE | 2021-03-29 07:38 | NUR ---
Rn summary: Patient has had pain issues tonight, difficulty getting pain controlled. Oral roxanol was not effective. Pt has a duregesic patch with a fentanyl MAP MAKER. Pt had good relief at first but having significant pain8/10 at shift change. MAP MAKER was checked and verified with Joshua ROSALES at shift change. Pt has also had nausia and was medicated x2 with zofran and x1 with reglan. Pt rested for 2 hours whin MAP MAKER firrst started. Nausia with no emisis. NG to rt nare, not being used at this time. Pt c/o abdomen feeling like it is bloated and he is going to burst. Abdomen is soft, hypo active BT. Pt refused bowel care due to nausia. Pt is able to get up independantly to BR. uses call light apropriately.
[2021-03-29 08:36] LABS: Alanine Aminotransfer (ALT/SGP 103 U/L (12-78); Albumin/Globulin Ratio 0.4 (0.8-1.8); Alk Phos 582 U/L (50-136); Anion Gap 7 mmol/L (6-16); Aspartate Aminotrans (AST/SGOT 158 U/L (12-37); Bilirubin, Total 9.2 mg/dL (0.1-1.0); Blood Urea Nitrogen 12 mg/dL (8-24); Bun/Creatinine Ratio 16.7 (12.0-20.0); CO2, Blood 23 mmol/L (21-32); Calcium, Blood 8.4 mg/dL (8.5-10.1); Chloride, Blood 109 mmol/L (98-108); Creatinine, Blood 0.72 mg/dL (0.60-1.20); Globulin, Blood 4.6 g/dL (2.2-4.0); Glomerular Filtration Rate >60 (60-); Glucose, Blood 111 mg/dL (70-99); Potassium, Blood 3.5 mmol/L (3.5-5.5); Sodium, Blood 139 mmol/L (136-145); Total Protein, Blood 6.6 g/dL (6.4-8.2)
--- NOTE | 2021-03-29 17:24 | NUR ---
Pal Care visit made to pt and . Pt is writhing in pain and reports no improvement in pain relief today. Drs have made multiple changes in pain management, including starting a fentanyl ASSISTANT PROFESSOR OF FORESTRY and restarting PO pain medications. Pt appears sl more jaundiced to me than yesterday. He appears profoundly exhausted but is restless and moving his legs and turning in bed frequently. Celine is tearful and anxious at the bedside. She expressed fear that if Todd did not complete his AD he was at risk for not receiving full treatment. I reviewed again Full code status orders in place that are currently consistent with what pt and have expressed they want. verbalized relief and her improved understanding. I suggested they wait to complete AD when Todd is not feeling so miserable since he has a willing and able medical surrogate decision maker in Celine. I gave them information on how to reach one of our notaries if they need those services while pt is hospitalized. discussed staying over night with me. Todd encouraged her to go home at night for rest and I also encouraged Celine to get rest in her own bed. As I was leaving, Pt's brother came in for a visit. Plan daily visits per [facility] Care for support to pt/.
--- NOTE | 2021-03-29 17:35 | NUR ---
Pal Care visit - Brief visit. Pt sound asleep and did not wake to voice or touch. I did not disturb him. No family in room currently. T/C and VM left for Aster just to check in. I let her know Pal care would be checking on Ryley daily.
--- NOTE | 2021-03-29 18:38 | NUR ---
SHIFT SUMAMMARY PT AOX4; AT BEDSIDE. PT PAIN STAYS ABOUT 7/10 ON HIS ABD AND WORSE WHEN MOVING. PT HAS FEED PROJECT ENGINEER PUMP AND PRN MEDS NEEDED. PT CAN HAVE ICE CHIPS AND MED. PT MEDICATED TODAY WITH ANTINAUSEA AND FOR PAIN PER EMAR. DID NOT GIVE CHEMO MEDS BECAUSE OF NAUSEA DR RATLIFF; DR RAVI CONSULTED. BED IS IN THE LOWEST POSITION AND CALL LIGHT WITHIN REACH
--- NOTE | 2021-03-30 03:36 | NUR ---
SHIFT SUMMARY PT CONTINUES TO HAVE PAIN AND NAUSEA T/O THE SHIFT. MEDICATED WITH ANTIEMETICS AND ANAGLESICS PER EMAR ORDERS. PT HAS SLEPT OFF AND ON T/O SHIFT, BUT UNCOMFORTABLE AT TIMES. PT VOMITTED X1 THIS SHIFT AND HAD SOME LOOSE STOOL THIS SHIFT AFTER BOWEL CARE WAS STARTED DURING DAYSHIFT. PT MOSTLY INDEPENDENT IN THE ROOM, MAKES NEEDS KNOWN. PARENT TRAINER PUMP IS IN PLACE WITH ORDERED SETTINGS, PT USES WHEN NEEDED. VITALS STABLE. BED IN LOWEST POSITION, CALL LIGHT WITHIN REACH.
[2021-03-30 06:48] LABS: Alanine Aminotransfer (ALT/SGP 105 U/L (12-78); Albumin, Blood 2.1 g/dL (3.4-5.0); Albumin/Globulin Ratio 0.5 (0.8-1.8); Alk Phos 581 U/L (50-136); Anion Gap 6 mmol/L (6-16); Aspartate Aminotrans (AST/SGOT 182 U/L (12-37); Bilirubin, Total 9.1 mg/dL (0.1-1.0); Blood Urea Nitrogen 17 mg/dL (8-24); Bun/Creatinine Ratio 25.7 (12.0-20.0); CO2, Blood 23 mmol/L (21-32); Calcium, Blood 8.5 mg/dL (8.5-10.1); Chloride, Blood 108 mmol/L (98-108); Creatinine, Blood 0.66 mg/dL (0.60-1.20); Globulin, Blood 4.5 g/dL (2.2-4.0); Glomerular Filtration Rate >60 (60-); Glucose, Blood 135 mg/dL (70-99); Potassium, Blood 3.5 mmol/L (3.5-5.5); Sodium, Blood 137 mmol/L (136-145); Total Protein, Blood 6.6 g/dL (6.4-8.2)
--- NOTE | 2021-03-30 14:43 | NUR ---
Spiritual care visit conducted. Patient tells me about the struggle it has been to emotionally process his disease and the symptoms he is dealing with. Patient's brother, Dr. Calderon enters patient rm, it took me a little time to connect that they are brothers so I continue to stay involved in the conversation and provide encouragement to patient and provide the ice chips the patient requested. I then let them visit. I will continue to remain avaiable to patient and family.
--- NOTE | 2021-03-30 19:41 | NUR ---
a+o. requested oral pain medication, gave him one small pill at a time, swallowed well and denied increased nausea, spent day resting and talking to friends, call light in reach, rm air, iv infusing with no s/sx of infection or infiltration
--- NOTE | 2021-03-31 06:25 | NUR ---
SHIFT SUMMARY ALERT, ABLE TO MAKE NEEDS KNOWN. COOPERATIVE WITH CARE. DROWSY. NOT MUCH REST OVERNIGHT. C/O PAIN/DISCOMFORT TO ABD; RATES PAIN 8-9/10. ON MASTER OCEAN PUMP WITH BREAKTROUGH MEDICATION AVAILABLE WHICH WAS UTILIZED. NAUSEATED MUCH OF THE NIGHT; MEDICATED PER EMAR. VSS/AFEBRILE. TELE RUNNING SR IN 60s PER TECHNICAL SERVICES MANAGER. INDEPENDENT TO BATHROOM. NO OTHER ACUTE CHANGES NOTED. BED REMAINS IN LOWEST POSITION. CALL LIGHT AND BELONGINGS WITHIN REACH. CONTINUE WITH CURRENT PLAN OF CARE. REPORT TO ONCOMING RN.
[2021-03-31 09:11] LABS: Alanine Aminotransfer (ALT/SGP 125 U/L (12-78); Albumin, Blood 1.9 g/dL (3.4-5.0); Albumin/Globulin Ratio 0.4 (0.8-1.8); Alk Phos 652 U/L (50-136); Anion Gap 6 mmol/L (6-16); Aspartate Aminotrans (AST/SGOT 208 U/L (12-37); Bilirubin, Total 9.4 mg/dL (0.1-1.0); Blood Urea Nitrogen 19 mg/dL (8-24); Bun/Creatinine Ratio 25.8 (12.0-20.0); CO2, Blood 24 mmol/L (21-32); Calcium, Blood 7.7 mg/dL (8.5-10.1); Chloride, Blood 105 mmol/L (98-108); Creatinine, Blood 0.74 mg/dL (0.60-1.20); Globulin, Blood 4.8 g/dL (2.2-4.0); Glomerular Filtration Rate >60 (60-); Glucose, Blood 139 mg/dL (70-99); Potassium, Blood 3.4 mmol/L (3.5-5.5); Sodium, Blood 135 mmol/L (136-145); Total Protein, Blood 6.7 g/dL (6.4-8.2)
[2021-03-31 11:43] LABS: SARS-Cov-2 (COVID-19) PCR, MMC NEGATIVE (NEGATIVE)
--- NOTE | 2021-03-31 16:59 | NUR ---
[facility] bed. Monitor is now showing a sinus rhythm at 67 bpm. Patient responds to questions, but resing easily. Right flank billiary tube intact. Dressing clean dry and intact. No hematoma noted.
--- NOTE | 2021-03-31 17:05 | NUR ---
DR. ANASRI AT THE BEDSIDE TO CHECK ON PATIENT. CARDIOLOGY CONSULTED, PATIENT IS ON DILTIAZEM GTT BUT CONVERTED IN THE LAB. AFIB/RVR TO SINUS TO SVT TO SINUS. DILTIAZEM GTT TURNED OFF, TRIALING TO SEE IF PATIENT STAYS IN SINUS RHYTHM. DILIP IS ONE ON ONE IN THE [facility] RECOVERY ON THE MONITOR. AT THE BEDSIDE.
--- NOTE | 2021-03-31 17:10 | NUR ---
DR. LEI SPOKE WITH THE PATIENTS IN THE WAITING ROOM. SHE THEN CAME TO THE BEDSIDE WITH THE PATIENT WHILE WE WAIT FOR A BED ASSIGNMENT. /STAFF ASSISTED THE PATIENT TO SITTING ON THE SIDE OF THE BED TO VOID.
--- NOTE | 2021-03-31 17:22 | NUR ---
PATIENT VOIDED AND THEN REPOSITIONED BACK INTO THE BED. PATIENT IS CONFUSED AND AGITATED. LIGHTS DIMMED, STEPPED AWAY FROM THE BEDSIDE. NOISE REDUCED AND CONTINUE TO MONITOR.
--- NOTE | 2021-03-31 17:53 | NUR ---
EKG DONE PER DR ANSARI'S REQUEST. RHYTHM SINUS
--- NOTE | 2021-03-31 18:30 | NUR ---
PATIENT VOIDED 250 CC OF DARK REDDISH/BROWN URINE VIA URINAL.
--- NOTE | 2021-03-31 19:15 | NUR ---
Review of care and supportive visit with . Reassured her he is on continuous cardiac monitoring. pt very stressed and scared. pt fragile high risk for cardiac event and failure to thrive. kps score is 40%.
[2021-03-31 19:31] LABS: Hematocrit 32.4 % (37.0-53.0); Mean Corpuscular Volume 94 fL (80-100); Mean Platelet Volume 11.2 fL (9.1-12.4); Platelet Count 290 K/mm3 (150-400); RDW Coefficient Variation 17.4 % (11.7-14.2); RDW Standard Deviation 59.6 fL (35.1-46.3); Red Blood Cell Count 3.44 M/mm3 (4.30-5.90); White Blood Cell Count 9.04 K/mm3 (4.00-11.30)
[2021-03-31 19:55] LABS: Alanine Aminotransfer (ALT/SGP 141 U/L (12-78); Albumin/Globulin Ratio 0.4 (0.8-1.8); Alk Phos 630 U/L (50-136); Anion Gap 5 mmol/L (6-16); Aspartate Aminotrans (AST/SGOT 260 U/L (12-37); Bilirubin, Total 10.3 mg/dL (0.1-1.0); Blood Urea Nitrogen 19 mg/dL (8-24); Bun/Creatinine Ratio 27.6 (12.0-20.0); CO2, Blood 24 mmol/L (21-32); Calcium, Blood 8.6 mg/dL (8.5-10.1); Chloride, Blood 106 mmol/L (98-108); Creatinine, Blood 0.69 mg/dL (0.60-1.20); Globulin, Blood 4.8 g/dL (2.2-4.0); Glomerular Filtration Rate >60 (60-); Glucose, Blood 141 mg/dL (70-99); Potassium, Blood 3.4 mmol/L (3.5-5.5); Sodium, Blood 135 mmol/L (136-145); Total Protein, Blood 6.8 g/dL (6.4-8.2)
--- NOTE | 2021-03-31 20:11 | NUR ---
RETURNED FROM DS, REPORT RECEIVED, PT DECLINED TO HAVE FEEDING STARTED UP UNTIL SURE NO PAIN FROM PROCEDURE, CALL LIGHT IN REACH, INFUSING CLINAMIX, RM AIR, FAMILY AT BED SIDE, BSR SHARE WITH NOC NURSE AND PT
[2021-03-31 23:06] LABS: Magnesium, Blood 2.1 mg/dL (1.6-2.4); Phosphorus, Blood 2.6 mg/dL (2.5-4.9)
--- NOTE | 2021-04-01 00:55 | NUR ---
UNIT TRANSFER ACCEPTED PT FROM MEDICAL FLOOR. PT C/O NAUSEA AND INCREASED PAIN IN ABDOMEN. NEW PIV PLACED IN THE RIGHT FOREARM AND LOAN ADMINISTRATOR RESTARTED IN NEW PIV, TOLERATED WELL. AMIODARONE PREPARED TO START IN POWERGLIDE IN LEFT ARM. NO OTHER ACUTE CHANGES NOTED.
[2021-04-01 01:36] LABS: Anion Gap 7 mmol/L (6-16); Blood Urea Nitrogen 20 mg/dL (8-24); Bun/Creatinine Ratio 28.3 (12.0-20.0); CO2, Blood 23 mmol/L (21-32); Calcium, Blood 8.1 mg/dL (8.5-10.1); Chloride, Blood 105 mmol/L (98-108); Creatinine, Blood 0.71 mg/dL (0.60-1.20); Glomerular Filtration Rate >60 (60-); Glucose, Blood 138 mg/dL (70-99); Magnesium, Blood 2.1 mg/dL (1.6-2.4); Potassium, Blood 3.5 mmol/L (3.5-5.5); Sodium, Blood 135 mmol/L (136-145)
[2021-04-01 05:45] LABS: Alanine Aminotransfer (ALT/SGP 127 U/L (12-78); Albumin, Blood 1.9 g/dL (3.4-5.0); Albumin/Globulin Ratio 0.4 (0.8-1.8); Alk Phos 616 U/L (50-136); Anion Gap 6 mmol/L (6-16); Aspartate Aminotrans (AST/SGOT 179 U/L (12-37); Bilirubin, Total 6.6 mg/dL (0.1-1.0); Blood Urea Nitrogen 20 mg/dL (8-24); Bun/Creatinine Ratio 25.6 (12.0-20.0); CO2, Blood 24 mmol/L (21-32); Calcium, Blood 8.3 mg/dL (8.5-10.1); Chloride, Blood 106 mmol/L (98-108); Creatinine, Blood 0.78 mg/dL (0.60-1.20); Globulin, Blood 4.9 g/dL (2.2-4.0); Glomerular Filtration Rate >60 (60-); Glucose, Blood 140 mg/dL (70-99); Potassium, Blood 3.5 mmol/L (3.5-5.5); Sodium, Blood 136 mmol/L (136-145); Total Protein, Blood 6.8 g/dL (6.4-8.2)
--- NOTE | 2021-04-01 06:27 | NUR ---
SHIFT SUMMARY PT ARRIVED TO FLOOR AT 0050. UPON ARRIVAL, PT C/O NAUSEA AND PAIN. A FIB WITH RVR ON ARRIVAL. PIV PLACED IN THE RIGHT FOREARM. LOPRESSOR, 5MG PUSH, PER MD ORDER GIVEN BEFORE AMIODARONE DRIP WAS STARTED IN LEFT AC POWERGLIDE, OTHER MEDS MOVED TO NEW PIV IN RFA. A SECOND LOPRESSOR 5MG PUSH WAS GIVEN PER MD ORDER FOR SUSTAINED HR OF >150. KCL WAS STARTED ALONG CLINIMIX IN RFA PIV. HR SUSTAINING <100 AT THIS TIME. NO OTHER ACUTE CHANGES NOTED AT THIS TIME.
--- NOTE | 2021-04-01 11:52 | NUR ---
Spiritual care visit conducted. Patient is lying in bed and alert. Patient tells me about the depression, spiritual distress and emotional pain his diagnosis and symptoms have caused. He shares about the deep ache of leaving his spouse behind and he discusses all the things that he wishes that he had done for her (mostly tasks around the house). We explore his roderick crisis and his desire to re-engage in prayer again. We talk about and dying and outside of a miracle he is in for a bumpy ride and would rather "move on" than stay and fight if his symptoms and ability to eat don't improve. I normalize his experience, reinforce helpful attitudes and practices and provide spiritual guidance, companionship and prayer. Patient responds well and shows signs of increased hope and restored roderick. I will continue to remain available to patient and family.
[2021-04-01 14:42] LABS: Alanine Aminotransfer (ALT/SGP 107 U/L (12-78); Albumin, Blood 1.9 g/dL (3.4-5.0); Albumin/Globulin Ratio 0.4 (0.8-1.8); Alk Phos 547 U/L (50-136); Anion Gap 6 mmol/L (6-16); Aspartate Aminotrans (AST/SGOT 129 U/L (12-37); Bilirubin, Total 5.3 mg/dL (0.1-1.0); Blood Urea Nitrogen 21 mg/dL (8-24); CO2, Blood 23 mmol/L (21-32); Calcium, Blood 8.3 mg/dL (8.5-10.1); Chloride, Blood 106 mmol/L (98-108); Creatinine, Blood 0.73 mg/dL (0.60-1.20); Globulin, Blood 4.6 g/dL (2.2-4.0); Glomerular Filtration Rate >60 (60-); Glucose, Blood 145 mg/dL (70-99); Potassium, Blood 3.8 mmol/L (3.5-5.5); Sodium, Blood 135 mmol/L (136-145); Total Protein, Blood 6.5 g/dL (6.4-8.2)
--- NOTE | 2021-04-01 16:07 | NUR ---
SHIFT SUMMARY; ASSUMED CARE AT 0700. A/A/OX4 DURING SHIFT. HEPATIC DRAIN TO LEFT ABDOMEN DRAINING BROWN LIQUID. DRESSING REINFORCED FOR LEAKAGE AROUND INSERTION SITE. CLINIMIX INFUSING AT 75ML HOUR. AMNIODERONE DC'D DURING SHIFT. REPOSITIONS SELF IN BED, USES URINAL AT BEDSIDE. NG TUBE FLUSHED AND CLAMPED. REPORT TO MEDICAL FLOOR CONNIE BROUSSARD TO ASSUME CARE.
--- NOTE | 2021-04-01 18:37 | NUR ---
pt states pain ok today slighly more alert. pt moved to [facility] for [facility] care. Review of pt and wifes stress and needs with pt advocate. Will continue to support through her grief and fear. Will monitor pt medication and tolerace to new cardiac medications. goal is that he can tolerate his cancer medication.
--- NOTE | 2021-04-01 19:34 | NUR ---
SHIFT SUMMARY 1530 RECEIVED PT TO RM 362 VIA GURNEY FROM PCU 12. PT IS A&O, WEAK AND FRAIL. ADMITTED FOR ACUTE PANCREATITIS R/T COLON CA WITH METS. CURRENTLY NOT RECEIVING CHEMO. NPO WITH CLINIMIX INFUSING. PT ALSO WITH OUTDOOR LANDSCAPE ARCHITECT INFUSING. NGT CLAMPED. HEPATIC DRAIN RLQ, DRAINING DRK BROWN/BILE COLORED FLUID. PT INCREASED TO ICE CHIPS TO TRANSITION TO PO MEDS. PT HAS BEEN TOLERATING; NAUSEA DECREASED TODAY. PER REPORT, LRG AMT OF STOOL IN COLON, BOWEL CARE TO BE GIVEN. PT UP TO BTHRM, REPORTING THAT HE TRIED TO HAVE BM. REQUESTED NAUSEA MEDICATION DURING SHIFT REPORT; COMPAZINE GIVEN. PT RESTING QUIETLY AT THIS TIME, EYES CLOSED, RESP E/U. REPORT GIVEN TO MARYAM ROSALES.
--- NOTE | 2021-04-02 02:29 | NUR ---
REPORT GIVEN TO CELIA ROSALES. NO ACUTE CHANGES SINCE CHANGE OF SHIFT. PATIENT ALTERT AND ORIENTED, ABLE TO MAKE NEEDS KNOWN. PATIENT RESTING AT THIS TIME. HE IS ABLE TO AMBULATE WITH SBA TO THE BATHROOM. CLINAMIX, FENTANYL EXHAUSTER ENGINEER RUNNING PER ORDER. DOBHOFF INPLACE AND SECURE. BILLIARY DRAIN INPLACE AND PATENT. SOME WEAPING NOTED AROUND DRAIN INTERTION SITE, ABSORBANT DRESSING PLACED. BED LOW AND LOCKED SHREE LIGHT WITHIN REACH, BED ALARM SET.
--- NOTE | 2021-04-02 02:51 | NUR ---
RECEIVED REPORT FROM CONNIE LEMON. ASSUMED CARE OF PT. WILL PROVIDE CARE THE REST OF SHIFT.
[2021-04-02 05:46] LABS: Alanine Aminotransfer (ALT/SGP 87 U/L (12-78); Albumin, Blood 1.9 g/dL (3.4-5.0); Albumin/Globulin Ratio 0.4 (0.8-1.8); Alk Phos 490 U/L (50-136); Anion Gap 6 mmol/L (6-16); Aspartate Aminotrans (AST/SGOT 82 U/L (12-37); Bilirubin, Total 4.7 mg/dL (0.1-1.0); Blood Urea Nitrogen 21 mg/dL (8-24); Bun/Creatinine Ratio 29.9 (12.0-20.0); CO2, Blood 25 mmol/L (21-32); Calcium, Blood 8.3 mg/dL (8.5-10.1); Chloride, Blood 105 mmol/L (98-108); Globulin, Blood 4.8 g/dL (2.2-4.0); Glomerular Filtration Rate >60 (60-); Glucose, Blood 134 mg/dL (70-99); Potassium, Blood 3.8 mmol/L (3.5-5.5); Sodium, Blood 136 mmol/L (136-145); Total Protein, Blood 6.7 g/dL (6.4-8.2)
--- NOTE | 2021-04-02 05:54 | NUR ---
CLEARED CORPORATE SAFETY COORDINATOR FENTANYL PUMP WITH JIGAR SENIOR RN.
--- NOTE | 2021-04-02 06:26 | NUR ---
SHIFT SUMMARY: A/O. LITTLE DROWSY WHEN AWAKE, ON NURSING HOME MANAGER WITH CONTINUOUS FENTANYL INFUSION VIA NURSING HOME MANAGER. ON RA. SINUS AT 60 PER TELE. NGT FOR TRICKLE FEEDINGS MANAGED BY DIETARY. STILL HAS STOMACH PAIN WHICH IS IMPROVED WITH THE NURSING HOME MANAGER PAIN PUMP. OKAY FOR TO HAVE ICE AND SIPS WELL ORAL MEDICATIONS. NO SWALLOWING ISSUES. NGT IS FOR FEEDINGS. CURRENTLY ON CLINIMIX VIA IV. SBA. KNOWS LIMITATIONS. USES CALL LT APPROPRIATELY. ZOFRAN GIVEN EARLIER IN SHIFT FOR NAUSEA. PT HAS RESTED WELL. BILIARY DRAIN PATENT. WILL CONTINUE TO PROVIDE CARE UNTIL SHIFT REPORT.
--- NOTE | 2021-04-02 17:30 | NUR ---
SHIFT SUMMARY PT AOX3/4; DROWSY. PT STILL RECEIVING DIELECTRIC MACHINE OPERATOR PAIN MEDS AND NOW STARTED ON CONTINUOUS FEED STARTED ON 10ML/HR; TOLERATING OKAY. PT MEDICATED FOR ANTINAUSEAX2. DRESSING CHANGED ON THE BILIRUBIN DRAINING SITE X2; DENIES CP OR SOB. BED IS IN THE LOWEST POSITION AND CALL LIGHT WITHIN REACH
--- NOTE | 2021-04-02 18:42 | NUR ---
CLEARED CYBER THREAT ANALYST WITH ALFREDO ROSALES
[2021-04-03 06:42] LABS: Alanine Aminotransfer (ALT/SGP 65 U/L (12-78); Albumin, Blood 1.8 g/dL (3.4-5.0); Albumin/Globulin Ratio 0.4 (0.8-1.8); Alk Phos 398 U/L (50-136); Anion Gap 6 mmol/L (6-16); Aspartate Aminotrans (AST/SGOT 59 U/L (12-37); Bilirubin, Total 4.5 mg/dL (0.1-1.0); Blood Urea Nitrogen 23 mg/dL (8-24); Bun/Creatinine Ratio 33.6 (12.0-20.0); CO2, Blood 25 mmol/L (21-32); Calcium, Blood 8.6 mg/dL (8.5-10.1); Chloride, Blood 104 mmol/L (98-108); Creatinine, Blood 0.69 mg/dL (0.60-1.20); Globulin, Blood 4.6 g/dL (2.2-4.0); Glomerular Filtration Rate >60 (60-); Glucose, Blood 121 mg/dL (70-99); Potassium, Blood 3.7 mmol/L (3.5-5.5); Sodium, Blood 135 mmol/L (136-145); Total Protein, Blood 6.4 g/dL (6.4-8.2)
--- NOTE | 2021-04-03 06:52 | NUR ---
SHIFT SUMMARY PT IS A 60 Y/O MALE, ADMITTED FOR ACUTE PANCREATITIS. HE IS A&O X 3, WITH SOME ANXIETY, HX OF COLON CA. BILIARY DRAIN IN PLACE, WITH SOME LEAKAGE AT THE SITE. DOBHOFF IN PLACE. PT WAS RECIEVING CONTINUOUS FEEDINGS AT 10 ML/HR, BUT WAS UNABLE TO TOERATE IT, DENIED NAUSEA BUT FELT BLOATED AND THAT "I CAN TASTE THE FEEDING, FEEDING SPEED DECREASED TO 5 ML/HR AT THAT TIME, WHICH PT STATED "HELPED". THIS AM APPROXIMATELY 0400 HE WOKE FEELING NAUSEOUS AND "MORE BLOATED THAN I WAS BEFORE". HE WAS MEDICATED WITH PRN ZOFRAN AND TUBE FEED WAS DC'D. VITAL SIGNS STABLE. TELE DC'D. NO OTHER ACUTE CHANGES IN PT CONDITION NOTED DURING THE NIGHT. WILL CONTINUE TO MONITOR AND TREAT PER EMAR UNTIL HAND OFF TO DAY SHIFT RN.
--- NOTE | 2021-04-03 18:07 | NUR ---
SHIFT SUMMARY PT AOX3; WITH SOME CONFUSION. PT STILL RECEIVING DUMP TRUCK OPERATOR PUMP; DID NOT TOLERATE TUBE FEED LAST NIGHT AND HE REFUSED TO CONTINUE IT TODAY; HE STATED WHEN HE START FEELING A LITTLE BETTER AND NOT BLOATED THEN HE WOULD LIKE TO CONTINUE. PT STILL COMPLAINING OF NOT HAVING A BM; SUPPOSITORY GIVEN PER EMAR. UPDATED AT BEDSIDE; SHE WAS VERY EMOTIONAL AND ANXIOUS ABOUT SEEING HER . PT STILL ON CLINIMIX. CALLED DR DAMON ABOUT THE LEAKING BILIARY DRAIN; SOAKED ONCE TODAY AND DR WILL FOLLOW UP WITH THE SURGEON TO TAKE A LOOK TOMORROW. ABD PAD PLACED ON THE OUTSIDE OF DRAIN; IT IS DRAINING MINIMAL OUTPUT ABOUT 100ML TODAY. BED IS IN THE LOWEST POSITION AND CALL LIGHT WITHIN REACH
--- NOTE | 2021-04-04 05:43 | NUR ---
SHIFT SUMMARY PT IS A 60 Y/O MALE, ADMITTED FOR ACUTE PANCREATITIS WITH A HX OF COLON CANCER. HE IS A&O X 3, ANXIOUS AT TIMES, BEDREST. HE WAS MEDICATED WITH SCHEDULED NAUSEA MEDICATION, AND SCHEDULED PAIN MEDICATION. PT IS ON CLINIMIX @ 75 ML/HR. PT WAS UNABLE TO TOLERATE DRIP FEED VIA NG TUBE AND REFUSED IT. NO C/O SOB. VITAL SIGNS STABLE. NO ACUTE CHANGES IN PT CONDITION NOTED DURING THE NIGHT. WILL CONTINUE TO MONITOR AND TREAT PER EMAR UNTIL HAND OFF TO DAY SHIFT RN.
[2021-04-04 07:26] LABS: Alanine Aminotransfer (ALT/SGP 59 U/L (12-78); Albumin, Blood 1.8 g/dL (3.4-5.0); Albumin/Globulin Ratio 0.4 (0.8-1.8); Alk Phos 343 U/L (50-136); Anion Gap 6 mmol/L (6-16); Aspartate Aminotrans (AST/SGOT 62 U/L (12-37); Bilirubin, Total 4.7 mg/dL (0.1-1.0); Blood Urea Nitrogen 27 mg/dL (8-24); Bun/Creatinine Ratio 36.4 (12.0-20.0); CO2, Blood 24 mmol/L (21-32); Calcium, Blood 8.5 mg/dL (8.5-10.1); Chloride, Blood 104 mmol/L (98-108); Creatinine, Blood 0.74 mg/dL (0.60-1.20); Globulin, Blood 4.6 g/dL (2.2-4.0); Glomerular Filtration Rate >60 (60-); Glucose, Blood 128 mg/dL (70-99); Phosphorus, Blood 3.1 mg/dL (2.5-4.9); Potassium, Blood 3.9 mmol/L (3.5-5.5); Sodium, Blood 134 mmol/L (136-145); Total Protein, Blood 6.4 g/dL (6.4-8.2)
--- NOTE | 2021-04-04 18:00 | NUR ---
BILIARY DRAIN FLUSHED W/ 10 CC NS PER MD ORDER. FLUSHED WITH NO RESISTANCE. PT REPORTED MILD PAIN WITH FLUSH WHICH SUBSIDED QUICKLY. DRAINAGE DRAINING SMALL AMOUNT.
--- NOTE | 2021-04-04 19:48 | NUR ---
SHIFT SUMMARY: PT A/O PLEASANT AND COOPERATIVE. PT HAS BEEN HAVING ABD PAIN T/OUT THE DAY. NAUSEA THIS AM RESOLVED POST REGLAN ADMINISTRATION. DRAINAGE TO BILIARY DRAIN AT INCISION SITE WAS LARGE AMOUNT THIS MORNING BUT MINIMAL BY SHIFT END. DRESSING WAS CHANGED X 2 TODAY. SEROSANGUINEOUS DRAINAGE AND BILIARY DRAINAGE NOTED. MILD SWELLING AND BRUISING TO SITE. CXR/ ABD XRAY COMPLETED TO CHECK ON PLACEMENT OF TUBE. PT PAIN TOLERABLE WHEN LYING STILL BUT WORSE WITH MOVEMENT. NO NG TUBE FEEDING TODAY, DISTENTION TO ABD DECREASED OVER THE DAY.
--- NOTE | 2021-04-04 21:34 | NUR ---
Brief supportive visit with , who was on her way out for the evening earlier. She states Todd is still very symptomatic and not feeling better. She states Dr's have a plan and have discussed it with her and Todd and she is praying, trying to remain hopeful. Listening provided and emotional support, shared hopes offered.
[2021-04-05 06:12] LABS: Alanine Aminotransfer (ALT/SGP 55 U/L (12-78); Albumin, Blood 1.7 g/dL (3.4-5.0); Albumin/Globulin Ratio 0.4 (0.8-1.8); Alk Phos 303 U/L (50-136); Anion Gap 6 mmol/L (6-16); Aspartate Aminotrans (AST/SGOT 63 U/L (12-37); Bilirubin, Total 5.5 mg/dL (0.1-1.0); Blood Urea Nitrogen 25 mg/dL (8-24); Bun/Creatinine Ratio 34.4 (12.0-20.0); CO2, Blood 24 mmol/L (21-32); Calcium, Blood 8.6 mg/dL (8.5-10.1); Chloride, Blood 103 mmol/L (98-108); Creatinine, Blood 0.73 mg/dL (0.60-1.20); Globulin, Blood 4.6 g/dL (2.2-4.0); Glomerular Filtration Rate >60 (60-); Glucose, Blood 133 mg/dL (70-99); Magnesium, Blood 2.3 mg/dL (1.6-2.4); Phosphorus, Blood 2.9 mg/dL (2.5-4.9); Potassium, Blood 3.9 mmol/L (3.5-5.5); Sodium, Blood 133 mmol/L (136-145); Total Protein, Blood 6.3 g/dL (6.4-8.2); Triglycerides 172 mg/dL (30-160)
--- NOTE | 2021-04-05 06:43 | NUR ---
CORRESPONDENCE WITH 2400: SPOKE TO DR. LAWSON, REQUESTED IV PAIN MEDICATION FOR PT. PT IS C/O EXCESSIVE PAIN THAT IS NOT RELIEVED BY PAIN MEDICATION. PT'S HAS CALLED TWICE THIS SHIFT WITH CONCERNS OF EXCESSIVE PAIN THAT HER IS EXPERIENCING WHEN SHE SPEAKS TO HIM ON THE PHONE. OBTAINED ORDER FOR DILAUDID ONCE PRN PAIN.
--- NOTE | 2021-04-05 07:55 | NUR ---
SHIFT SUMMARY NO ACUTE CHANGES. NAUSEA AND VOMITING CONTINUED, GIVEN ANTIEMETIC MEDS PRN. RECEIVED ONE DOSE OF DILAUDID FOR SEVERE PAIN. PT ABLE TO SLEEP INTERMITTENTLY THROUGH OUT THE SHIFT. RN CHANGED DRESSING TO BILIARY TUBE TWICE, DRAINING MODERATE ABOUT OF SEROSANGUINOUS DRAINAGE. FLUSHED BILIARY TUBE WITH 10 MLS OF NORMAL SALINE. TUBE FLUSHED EASILY. GAVE REPORT TO DAY SHIFT NURSE.
--- NOTE | 2021-04-05 18:14 | NUR ---
SHIFT SUMMARY PT AAOX4, ABLE TO MAKE NEEDS KNOWN. PLEASANT AND COOPERATIVE TO CARE. PT MEDICATED FOR PAIN THROUGH SHOULDER PUNCHER PUMP AND SCHEDULED PAIN REGIMEN. PT VERBALIZED THAT CURRENT PAIN REGIMEN IS EFFECTIVE IN TREATING HIS ABDOMINAL PAIN. NO C/O CP, SOB. PT ALSO MEDICATED FOR NAUSEA. NO OTHER C/O NOTED THIS SHIFT. BILIARY DRAIN PATENT, DRESSING CHANGED X2 THIS SHIFT. PT REQUIRES SBA TO BATHROOM. BED AT LOWEST POSITION. CALL LIGHT WITHIN REACH.
--- NOTE | 2021-04-06 04:11 | NUR ---
BOTTLE WASHING MACHINE OPERATOR SUMMARY PT A/O X4, AMBULATES WITH SBA TO THE BATHROOM. PT HAS BEEN USING CONTINOUS SPORTS MANAGEMENT PROFESSOR PUMP WELL SCHEDULED PAIN MEDICATION FOR ABD PAIN CONTROLL. PT'S PAIN LEVEL VERY HIGH WITH ACTIVITY. DENIES SOB, ROOM AIR. NO ACUTE CHANGES. VITALS ARE STABLE. CALL LIGHT WITHIN REACH, WILL CONTINUE TO MONITOR.
[2021-04-06 04:58] LABS: Hematocrit 32.3 % (37.0-53.0); Hemoglobin 10.8 g/dL (13.5-17.5); Mean Corpuscular HGB 32.1 pg (26.0-34.0); Mean Corpuscular HGB Conc 33.4 g/dL (31.5-36.5); Mean Corpuscular Volume 96 fL (80-100); Mean Platelet Volume 10.8 fL (9.1-12.4); Platelet Count 226 K/mm3 (150-400); RDW Coefficient Variation 17.1 % (11.7-14.2); RDW Standard Deviation 60.7 fL (35.1-46.3); Red Blood Cell Count 3.36 M/mm3 (4.30-5.90); White Blood Cell Count 7.01 K/mm3 (4.00-11.30)
[2021-04-06 05:19] LABS: Alanine Aminotransfer (ALT/SGP 65 U/L (12-78); Albumin, Blood 1.6 g/dL (3.4-5.0); Albumin/Globulin Ratio 0.3 (0.8-1.8); Alk Phos 278 U/L (50-136); Anion Gap 6 mmol/L (6-16); Aspartate Aminotrans (AST/SGOT 90 U/L (12-37); Bilirubin, Total 5.6 mg/dL (0.1-1.0); Blood Urea Nitrogen 25 mg/dL (8-24); Bun/Creatinine Ratio 34.1 (12.0-20.0); CO2, Blood 23 mmol/L (21-32); Calcium, Blood 8.2 mg/dL (8.5-10.1); Chloride, Blood 102 mmol/L (98-108); Creatinine, Blood 0.73 mg/dL (0.60-1.20); Globulin, Blood 4.7 g/dL (2.2-4.0); Glomerular Filtration Rate >60 (60-); Glucose, Blood 142 mg/dL (70-99); Magnesium, Blood 2.1 mg/dL (1.6-2.4); Phosphorus, Blood 3.2 mg/dL (2.5-4.9); Sodium, Blood 131 mmol/L (136-145); Total Protein, Blood 6.3 g/dL (6.4-8.2)
--- NOTE | 2021-04-06 18:58 | NUR ---
SHIFT SUMMARY PT AAOX4, ABLE TO MAKE NEEDS KNOWN, PLEASANT AND COOPERATIVE TO CARE. PT MEDICATED FOR PAIN THROUGH A INFORMATION TECHNOLOGY SPECIALIST PUMP AND SCHEDULED PAIN MEDS ORDERED. NO C/O CP, SOB. PT MEDICATED FOR NAUSEA X1 THIS SHIFT. PT HAD A PROCEDURE TODAY BY DR. FRENCH, BILIARY DRAIN TO R SIDE OF ABD PATENT AND DRAINING WELL. PT RESTING IN BED AT THIS TIME. CONTINUES ON CLINIMIX AND IV LIPIDS ORDERED. BED AT LOWEST POSITION. CALL LIGHT WITHIN REACH.
--- NOTE | 2021-04-06 19:19 | NUR ---
pt to procedure will review his nause and pain needs hoep is to DC soon.
[2021-04-07 04:59] LABS: Alanine Aminotransfer (ALT/SGP 75 U/L (12-78); Albumin, Blood 1.7 g/dL (3.4-5.0); Albumin/Globulin Ratio 0.3 (0.8-1.8); Alk Phos 288 U/L (50-136); Anion Gap 8 mmol/L (6-16); Aspartate Aminotrans (AST/SGOT 126 U/L (12-37); Bilirubin, Total 5.8 mg/dL (0.1-1.0); Blood Urea Nitrogen 24 mg/dL (8-24); Bun/Creatinine Ratio 33.4 (12.0-20.0); CO2, Blood 22 mmol/L (21-32); Calcium, Blood 8.5 mg/dL (8.5-10.1); Chloride, Blood 101 mmol/L (98-108); Creatinine, Blood 0.72 mg/dL (0.60-1.20); Globulin, Blood 4.9 g/dL (2.2-4.0); Glomerular Filtration Rate >60 (60-); Glucose, Blood 135 mg/dL (70-99); Potassium, Blood 4.2 mmol/L (3.5-5.5); Sodium, Blood 131 mmol/L (136-145); Total Protein, Blood 6.6 g/dL (6.4-8.2)
--- NOTE | 2021-04-07 09:54 | NUR ---
Received call from Pt's Celine. Offered therapeutic listening as Celine reports feeling that all options have been exhausted for Pt. Continued therapeutic listening. Celine is hoping Pt will consider comfort care and hospice. Celine request for this RN to have conversation with Pt regarding goals of care and to consider hospice. Spoke with [facility] [employer] Lead Dr Opal Gray and discussed case. Pt resting in bed and reports 7/10 pain. Pt pushes his BOTTLE CASER button for pain medication. 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 Engaged in gentle therapeutic conversation regarding considering comfort care. Offered therapeutic listening and answered questions. Pt states he will consider this option but can not continue the conversation at this time. Pt pushes his BOTTLE CASER button again. Ended visit to allow Pt to rest. Spoke with Hospital Pharmacist Gloria and consulted for pain managment. Gloria recommends Pt's long acting Oxycontin be increased to 60mg TID. Spoke with Dr Joseph and discussed pain management options. Spoke with Pt's Celine and relayed conversation that took place with Pt. Celine reports plan to continue conversation with Pt and will request Dr Miranda to have conversation with Pt. Celine expresses appreciation and reports no other concerns at this time. Pt's anxiety may be contributing towards his physical pain and may benefit from anti anxiety medication if appropriate. Palliative Care will remain available for supportive and therapeutic visits.
--- NOTE | 2021-04-07 17:21 | NUR ---
SHIFT SUMMARY PATIENT ALERT AND ORIENTED THIS SHIFT. PATIENT REMAINS IN BED THROUGHOUT THIS SHIFT. PATIENT REMAINS ON PRODUCTION ASSEMBLER PUMP WELL MEDICATED FOR PAIN PER EMAR. NO ACUTE CHANGES THIS SHIFT. BILIARY DRAIN FLUSHED THIS AM, DRAINING TO GRAVITY. PATIENT CURRENTLY LYING IN BED WATCHING TELEVISION.
--- NOTE | 2021-04-07 18:19 | NUR ---
Spoke with Dr Joseph and discussed case. Pt and Dr Miranda had a conversation regarding goals of care and Pt has elected comfort care. Pt resting in bed upon arrival. Engaged in therapeutic discussion regarding goals of care. Pt confirms his wishes to focus on comfort. Educated on comfort care philosophy with V/U made by Pt. Pt also agreeable to stop IV nutrition. Pt reports wanting to get home with hospice as soon as possible. Discussed plan to adjust pain regimen in order wean off ROLLER HAND. Pt is agreeable to plan. Spoke with Care Team including Primary RN Stan and tissue recovery technician Silvia. All are agreeable that Pt needs spouse as his support person due to his mental and physical needs. Called and spoke with Pt's spouse Celine. Provided update and Pt's wishes. Discussed plan and educated on comfort care philosophy. Celine is in agreement and expresses appreciation. Recieved assistance with co PC RM with placing orders per V/O from Dr Joseph. Palliative Care will remain available.
--- NOTE | 2021-04-07 18:28 | NUR ---
Patient placed on Comfort Care. Medications and code status updated to reflect the changes. Verbal order by Dr. Joseph.
--- NOTE | 2021-04-08 06:18 | NUR ---
SUMMARY PT PAIN MANAGED WELL THIS SHIFT. PT HAS REMAINED COMFORTABLE FOR MOST OF SHIFT. PT CURRENTLY SLEEPING IN NO DISTRESS. CALL LIGHT IN REACH.
--- NOTE | 2021-04-08 09:07 | NUR ---
Comfort care visit after EMR review and case conf with pt's RN. Pt low in the bed and legs pulled up in pain. He did not want me to help him reposition due to extreme pain. He is alert, anxious and appears clear minded. He is jaundiced and approx 200 ml of dk brown urine noted in urinal. Discussed pain and need for medication with RN. I recommended using medications that could be used at home first per eMAR. VM left for CM re: hope for d/c home today with hospice per and pt request. Will check back later today on s/s management.
--- NOTE | 2021-04-08 09:43 | NUR ---
T/C received from Celine, pt's . She has been in contact with [facility] and states they are able to admit him at home today. Celine states if this changes and they cannot do it today she would like us to contact [facility] to see if they can. Pt's daughter has arrived from [facility] to support and Todd and will be at home 12/03. This information was passed on to CM. has cleared space for hospital bed and BSC. She requests help with coordination of d/c home with hospice and [facility]. I assured her we would help coordinate with CM and keep her informed as new information became available t/o the day. RN updated also. I shared my am assessment with to updated pt's also. states Todd told her he had the best night in a long time. was very complimentary of pt's bedside RNs yesterday & last night. She expressed gratitude for having the same dayshift RN back today.
--- NOTE | 2021-04-08 11:52 | NUR ---
Update received from Laboratory Asst re: [facility] not available this week and referral faxed/phoned to [facility] per CM. updated on this also and told she would be hearing from us and [facility] as soon as new info available. Celine expressed appreciation for team's efforts and care.
--- NOTE | 2021-04-08 17:54 | NUR ---
Pal Care comfort care visit - Third visit to room today and summary of multiple case conferences with GEOVANNI, RN and [facility] hospice administrator - Pt appears more comfortable at this time than each previous visit today. He states he is still hurting and would like "half a dose of the pain medication". He reports nausea also. His daughter is at the bedside and I can see he is enjoying there visit. I did not stay long. I gave elizabeth and pt an update on [facility] being able to accept and admit at the earliest and Pt/ were agreeable/request [facility] Hospice at this time. I had already updated by phone several times today and GEOVANNI Gray was in close contact with and hospice agencies t/o the day also. Pt requests portable suction set up if possible to help remove thick phlegm and secretions easier. This was passed on to Bianka website project manager. End result per GEOVANNI is that [facility] will arrange DME delivery for [facility] transport home is arranged for 11 am tomorrow and [facility] will see pt at his home tomorrow also. Family and pt pleased and expressed appreciation for team helping them several times today. I spoke with RN after my visit to request 10 mg Roxanol per pt request and antiemetic per eMAR. Report left for Sunday Pal Care RN working tomorrow.
--- NOTE | 2021-04-08 17:56 | NUR ---
SHIFT SUMMARY PATIENT TRANSITIONED TO COMFORT CARE YESTERDAY EVENING. PATIENT MEDICATED WITH ROXINOL FOR PAIN THIS SHIFT. PATIENT STATES PAIN DECREASED TO 5-6/10 WITH ROXINOL, IMPROVED FROM THE 7/10 FROM THE PEDIATRIC PHYSICIAN ASSISTANT PUMP YESTERDAY. PATIENT MEDICATED THROUGHOUT THIS SHIFT PRN. DAUGHTER IN THE ROOM THROUGH MUCH OF THIS AFTERNOON. PATIENT MEDICATED FOR NAUSEA AND PAIN EARLY THIS AFTERNOON, PATIENT BECAME MINIMALLY RESPONSIVE WITH EYES OPEN AT THIS TIME. PATIENT INCREASED WOB. PATIENT WITH MINIMAL RESPONSIVE STATEMENTS TO QUESTIONS. PATIENT INCREASED RESPONSIVENESS AFTER APPROXIMATELY 1/2 HOUR. PATIENT CURRENTLY LYING IN BED RESTING, DAUGHTER AT BEDSIDE.
--- NOTE | 2021-04-09 09:43 | NUR ---
Comfort Care Visit Pt resting in bed with his eyes paritally closed. Pt's eyes open more to gentle verbal stimuli. Pt requesting pain medication. Pt appears lethargic and weak. Pt reports no other concerns and struggles with keeping his eyes open. Ended visit to allow Pt to rest. Spoke with RNs Ting and Branden. Relayed Pt's request for pain medication. Plan for Pt to D/C home with hospice at 1100. Palliative Care will remain available.
[2021-04-09] MEDS ORDERED: MORP20L SL (09:57)
[2021-04-09] MEDS ORDERED: ATROPINE SULFATE2 M1 SL (10:01)
[2021-04-09] MEDS ORDERED: BISA10S PR (10:02)
[2021-04-09] MEDS ORDERED: Ativan1 MG PO (10:04)
[2021-04-09] MEDS ORDERED: TRANSDERM-SCOP1 EAC6 TD (10:04)
[2021-04-09] MEDS ORDERED: FENTANYL1 EAC7 TOP (10:05)
--- NOTE | 2021-04-09 11:39 | NUR ---
DISCHARGED HOME WITH HOSPICE. 1105 PICK-UP VIA MEDICAL TRANSPORT. CALLED TO NOTIFY THAT PATIENT IS ON HIS WAY. PRE-MEDICATED WITH ROXANOL FOR PAIN. PAIN CONTROLLED AT TIME OF PICKUP.
== END 2021-04-09 11:19 | disposition hospice, home (50) | DRG 444 ==
LOC: ER 14:37 → ERHOLD 22:43 → MEDS 22:43 → PCU 04-01 00:41 → MEDS 04-01 15:29
PROVIDERS: Family Medicine; Hospitalist; Internal Medicine; Physician Assistant; ADMIT Internal Medicine
PROC: 0F9430Z Drainage of Gallbladder with Drainage Device, Percutaneous Approach (ICD-10-PCS; principal; 2021-03-31)
PROC: 3E0336Z Introduction of Nutritional Substance into Peripheral Vein, Percutaneous Approach (ICD-10-PCS; 2021-04-04)
DX: K83.1 Obstruction of bile duct (principal); K85.91 Acute pancreatitis with uninfected necrosis, unspecified; C77.2 Secondary and unspecified malignant neoplasm of intra-abdominal lymph nodes; C78.6 Secondary malignant neoplasm of retroperitoneum and peritoneum; C19 Malignant neoplasm of rectosigmoid junction; C78.7 Secondary malignant neoplasm of liver and intrahepatic bile duct; R64 Cachexia; I48.92 Unspecified atrial flutter; I47.2 Ventricular tachycardia; E44.0 Moderate protein-calorie malnutrition; T85.520A Displacement of bile duct prosthesis, initial encounter; Z51.5 Encounter for palliative care; Z66 Do not resuscitate; E78.5 Hyperlipidemia, unspecified; T45.1X5A Adverse effect of antineoplastic and immunosuppressive drugs, initial encounter; D53.9 Nutritional anemia, unspecified; D64.81 Anemia due to antineoplastic chemotherapy; G47.00 Insomnia, unspecified; D63.0 Anemia in neoplastic disease; G89.3 Neoplasm related pain (acute) (chronic); E88.09 Other disorders of plasma-protein metabolism, not elsewhere classified; E89.0 Postprocedural hypothyroidism; I48.91 Unspecified atrial fibrillation; K59.00 Constipation, unspecified; E86.0 Dehydration; Z90.5 Acquired absence of kidney; Z98.890 Other specified postprocedural states; Z79.899 Other long term (current) drug therapy; Z87.891 Personal history of nicotine dependence; Z68.22 Body mass index [BMI] 22.0-22.9, adult; N40.0 Benign prostatic hyperplasia without lower urinary tract symptoms; Y83.8 Other surgical procedures as the cause of abnormal reaction of the patient, or of later complication, without mention of misadventure at the time of the procedure
CPT/HCPCS: 36415; 47534; 71045; 74018; 74177; 74181; 76705; 76937; 80048; 80053; 81001; 82248; 83690; 83735; 84100; 84134; 84439; 84443; 84478; 85025; 85027; 87086; 93005; 93010; 94762; 96365-59; 96375; 96376; 99152; 99153; 99285-25; A9270; C1729; C1769; C1887; C1894; C9113; J0282; J0690; J0780; J1170; J1644; J1650; J2250; J2270; J2405; J2550; J2765; J3010; J3480; J7030; J7040; J7042; J7050; J7060; P9046; Q9967; U0004